=== PATIENT | female | born 2000 | race Caucasian/White ===

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

== ENCOUNTER 2022-01-20 14:54 | Inpatient (IN) | payer OTHER ==
[~2022-01-20] VITALS: Ht 165.1 cm; Wt 60.2 kg
[~2022-01-20 14:54] MED LIST changes: +SULF1TAB24 PO; +insulin pump CONT SUBC
[2022-01-20] MEDS ORDERED: IV NORMAL SALINE 1000ML BAG 1,000 ML IV SCH (17:00)
--- NOTE | 2022-01-20 17:24 | PHYS DOC ---
Past Medical History Past Medical History: Diabetes-Type I Additional Past Medical Histor: drug abuse (JESSICA GALARZA DO) Past Surgical History: No Surgical History (JESSICA GALARZA DO) Smoking Status: Never Smoker Alcohol Use: None Drug Use: Marijuana (JESSICA GALARZA DO) General Adult EDM: Chief Complaint: MEDICATION REFILL HPI: HPI: Patient is a 21 year old female with a history of insulin-dependent diabetes comes in with hyperglycemia medical noncompliance. Patient states that she ran out her of her insulin pump supplies and has been only using a pen. Patient denies any nausea or vomiting. Denies any polyuria. Patient also states that she has not had her menstrual cycle in the last 7 months thinks that she may be . Patient reports pelvic cramping. Denies any vaginal bleeding or dysuria. Patient also states that she is currently taking 30 mg Percocets that are bought in the street and states that they have fentanyl in them. Patient states her preferred method of consuming her Percocets is by snorting them. (JESSICA GALARZA DO) Review of Systems: Review of Systems: Constitutional: Denies fever or chills. Eyes: Denies change in visual acuity. HENT: Denies nasal congestion or sore throat. Respiratory: Denies cough or shortness of breath. Cardiovascular: Denies chest pain or edema. GI: Denies abdominal pain, nausea, vomiting, bloody stools or diarrhea. : Pelvic cramping, missed menstrual cycle, denies dysuria. Musculoskeletal: Denies back pain or joint pain. Integument: Denies rash. Neurologic: Denies headache, focal weakness or sensory changes. Endocrine: Denies polyuria or polydipsia. Lymphatic: Denies swollen glands. Psychiatric: Denies depression or anxiety. Drug dependence (JESSICA GALARZA DO) Heart Score: C/O Chest Pain: No Risk Factors: Risk Factors: DM, Current or recent (<one month) smoker, HTN, HLP, family history of CAD, obesity. Risk Scores: Score 0 - 3: 2.5% MACE over next 6 weeks - Discharge Home Score 4 - 6: 20.3% MACE over next 6 weeks - Admit for Clinical Observation Score 7 - 10: 72.7% MACE over next 6 weeks - Early Invasive Strategies (JESSICA GALARZA DO) Current Medications: Current Medications Medications (Trade) Dose Ordered Sig/Hakan Start Time Stop Time Status Last Admin Dose Admin Sodium Chloride 1,000 ml @ 1,000 mls/hr Q1H 01/20/22 17:00 01/20/22 17:59 (JESSICA GALARZA DO) Allergies: Allergies: Allergies Coded Allergies Type Severity Reaction Last Updated Verified Penicillins Allergy Intermediate Hives 01/20/22 Yes (JESSICA GALARZA DO) Physical Exam: PE: Constitutional: Well developed, well nourished, no acute distress, non-toxic appearance. HENT: Normocephalic, atraumatic, bilateral external ears normal, oropharynx moist, no oral exudates, nose normal. Eyes: PERRLA, EOMI, conjunctiva normal, no discharge. Neck: Normal range of motion, no tenderness, supple, no stridor. Cardiovascular:Heart rate regular rhythm, no murmur Lungs & Thorax: Bilateral breath sounds clear to auscultation Abdomen: Gravid appearance to the abdomen bowel sounds normal, soft, no tenderness, no masses, no pulsatile masses. Skin: Warm, dry, no erythema, no rash. Back: No tenderness, no CVA tenderness. Extremities: No tenderness, no cyanosis, no clubbing, ROM intact, no edema. Neurologic: Alert and oriented X 3, normal motor function, normal sensory function, no focal deficits noted. Psychologic: Affect normal, judgement normal, mood normal. (JESSICA GALARZA DO) Current Patient Data: Labs: Laboratory Tests Test 01/20/22 16:35 01/20/22 16:51 POC Urine HCG, Qualitative Hcg positive (Negative) Glucose (Fingerstick) 339 mg/dL (70-99) H Vital Signs: Vital Signs Date Time Temp Pulse Resp B/P (MAP) Pulse Ox O2 Delivery O2 Flow Rate FiO2 01/20/22 16:15 97.9 92 24 133/87 (102) 99 Room Air 97.9 (JESSICA GALARZA DO) EKG: EKG: Heart rate of 91 is normal sinus rhythm no obvious ischemic changes. (JESSICA GALARZA DO) Radiology/Procedures: Radiology/Procedures: [] (JESSICA GALARZA DO) Course & Med Decision Making: Course & Med Decision Making Pertinent Labs and Imaging studies reviewed. (See chart for details) case endorsed to Dr Camargo, pending, labs, treatment and Dispo (JESSICA GALARZA DO) Course & Med Decision Making I took over this patient's care from the departing physician. The plc technician came to me and said that she is fatimah every 2 minutes and is approximately 30 weeks and 6 days . At this point the patient also tells me that she is having significant vaginal discharge. There is no further point of me keeping her in the emergency department. She will be set up immediately to labor and delivery department. They will perform a complete evaluation including a pelvic exam and swabs. Given the patient's high risk factors she may have risk for sexually transmitted infections and other premature labor issues. From the standpoint of her diabetes she is not currently in DKA. (ELI CAMARGO MD) Dragon Disclaimer: Dragon Disclaimer: This electronic medical record was generated, in whole or in part, using a voice recognition dictation system. (JESSICA GALARZA DO) Departure Departure Impression: Primary Impression: 30 weeks gestation of Additional Impression: Uncontrolled diabetes mellitus Disposition: ADMITTED INPATIENT Condition: STABLE Referrals: EMY SALGADO (PCP) JESSICA GALARZA DO Jan 20, 2022 17:24 ELI CAMARGO MD Jan 20, 2022 19:33
--- NOTE | 2022-01-20 17:42 | EKG ---
[facility] [address] [place] [address] Test Date: 2022-01-20 Test Time: 17:08:12 Pat Name: JESSICA TURNER Department: Room: Gender: F Carton Liner: : 2000 Requested By: JESSICA GALARZA Order Number: [id number] Reading MD: Denis Payne Measurements Intervals [place] Rate: 91 P: 64 PA: 128 QRS: 49 QRSD: 76 T: 40 QT: 330 QTc: 407 Interpretive Statements SINUS RHYTHM Electronically Signed On 01-20-2022 21:14:34 CDT by Denis Payne
[2022-01-20 17:51] LABS: BASO % 0 % (0-3); EOS % 0 % (0-3); HEMATOCRIT 31.5 % (36.0-47.0); LYMPH # 1.3 x10^3/uL (1.0-4.8); LYMPH % 14 % (24-48); MEAN CORPUSCULAR HEMOGLOBIN 29 pg (25-35); MEAN CORPUSCULAR HGB CONC 35 g/dL (31-37); MEAN CORPUSCULAR VOLUME 82 fL (79-100); MONO # 0.6 x10^3/uL (0.0-1.1); MONO % 7 % (0-9); NEUT % 78 % (31-73); PLATELET COUNT 398 x10^3/uL (140-400); RED BLOOD COUNT 3.83 x10^6/uL (3.50-5.40); RED CELL DISTRIBUTION WIDTH 13.1 % (11.5-14.5); WHITE BLOOD COUNT 8.9 x10^3/uL (4.0-11.0)
[2022-01-20 18:04] LABS: CALCIUM 8.9 mg/dL (8.5-10.1); CREATININE 0.6 mg/dL (0.6-1.0); GFR 128.8; POTASSIUM 4.1 mmol/L (3.5-5.1)
[2022-01-20 18:11] LABS: ALBUMIN 2.4 g/dL (3.4-5.0); ALBUMIN/GLOBULIN RATIO 0.5 (1.0-1.7); MAGNESIUM 1.3 mg/dL (1.8-2.4); PHOSPHORUS 2.9 mg/dL (2.6-4.7); TOTAL BILIRUBIN 0.5 mg/dL (0.2-1.0); TOTAL PROTEIN 7.3 g/dL (6.4-8.2)
[2022-01-20 18:42] LABS: BASE EXCESS ABG -4 mmol/L (-3-3); HCO3 ABG 19 mmol/L (21-28); PCO2 ABG 29 mmHg (35-46); PO2 ABG 88 mmHg (85-108); SAT O2 ABG 96 % (92-99)
[2022-01-20 18:43] LABS: FIO2 ABG 21
[2022-01-20 18:57] LABS: BACTERIA,URINE MOD /HPF (0-FEW); WBC,URINE >40 /HPF (0-4)
--- NOTE | 2022-01-20 20:02 | RAD ---
EXAM: US OB Limited CLINICAL HISTORY: Pelvic cramping, no care. COMPARISON: None available. TECHNIQUE: Limited transabdominal ultrasound of the uterus was performed. FINDINGS: NUMBER: Single POSITION: breech. PLACENTA: Location: Posterior wall Placentation: Normal. Cord type: 3 vessel cord. The amount of amniotic fluid appears appropriate. ANATOMY: HEART RATE: 149 bpm COMMENTS: None Current measurements are: BPD - 7.6 cm = 30 weeks and 3 days HC -27.7 cm = 30 weeks and 2 days AC - 29.5 cm = 33 weeks and 3 days FL - 5.5 cm = 29 weeks and 0 days HC/AC: 29 Estimated weight: 3 pounds and 13 Oz. A 4 chamber heart is identified with positive cardiac activity. Bilateral upper and lower extremities are identified. stomach and urinary bladder are identified. Both kidneys are seen. The brain is visualized. MATERNAL ANATOMY CERVIX Length (cm): 1.4 cm UTERUS: No abnormalities seen. Placenta appears normal without appreciable hemorrhage. OVARIES/ADNEXAE: Not visualized. CUL-DE-SAC: No fluid. HISTORICAL DATES Last menstrual period: Unknown. EGA (US): 30 weeks and 6 days TRICIA (US): 03/25/2022. IMPRESSION: 1. Single live intrauterine in breech presentation with estimated gestational age is 30 wee ks and 6 days. 2. Recommend dedicated anatomic screening for further evaluation. Electronically signed by: Yefri Bonilla MD (01/20/2022 8:00 PM) [facility]
[2022-01-20] MEDS ORDERED: IV RINGERS,LACTATED 1000ML 1,000 ML IV PRN (20:30)
[2022-01-20 20:41] LABS: BARBITURATES NEG (NEG); BENZODIAZEPINES NEG (NEG); CANNABINOIDS POS (NEG); COCAINE NEG (NEG); METHADONE NEG (NEG); OPIATES NEG (NEG); PHENCYCLIDINE NEG (NEG)
[2022-01-20 21:00] VITALS: BP 114/60
[2022-01-20] MEDS ORDERED: IV RINGERS,LACTATED 1000ML 1,000 ML IV SCH (21:00)
[2022-01-20 21:14] LABS: AMPHETAMINE/METHAMPHETAMINE NEG (NEG)
[2022-01-20] MEDS ORDERED: MAGNESIUM SULFATE 4GM 100 ML IV ONE ×2 (21:15→21:45)
[2022-01-20] MEDS ORDERED: fentaNYL PF VIAL 100 MCG/2 ML VIAL ONE (21:27)
[2022-01-20] MEDS ORDERED: MORPHINE PF 10 MG/10 ML AMPUL. ONE (21:27)
[2022-01-20] MEDS ORDERED: 0.9 % SODIUM CHLORIDE 10 ML DISP.SYRIN. IV PRN ×3 (21:30→23:15)
[2022-01-20] MEDS ORDERED: MAG HYDROX/ALUMINUM HYD/SIMETH 30 ML ORAL.SUSP PO PRN (21:30)
[2022-01-20] MEDS ORDERED: ACETAMINOPHEN 325 MG TABLET. PO PRN (21:30)
[2022-01-20] MEDS ORDERED: OXYTOCIN 30 UNIT/500 ML PREMIX 500 ML IV PRN ×3 (21:30→23:15)
[2022-01-20] MEDS ORDERED: CLINDAMYCIN 600MG PREMIX 50 ML IV PRN (21:30)
[2022-01-20] MEDS ORDERED: ONDANSETRON PF 4 MG/2 ML VIAL. IVP PRN ×2 (21:30→23:15)
[2022-01-20] MEDS ORDERED: BETAMET ACET&NA PHOS 30 MG/5 ML VIAL. IM SCH (21:30)
[2022-01-20] MEDS ORDERED: TERBUTALINE 1 MG/ML VIAL. SQ PRN (21:30)
[2022-01-20] MEDS ORDERED: LIDOCAINE 1% PF 30 ML VIAL. INJ PRN (21:30)
[2022-01-20] MEDS ORDERED: ZOLPIDEM 5 MG TABLET. PO PRN (21:30)
[2022-01-20] MEDS ORDERED: IBUPROFEN 400 MG TABLET. PO PRN ×2 (21:30→23:15)
[2022-01-20] MEDS ORDERED: CITRIC ACID/SODIUM CITRATE 30 ML SOLUTION. PO PRN (21:30)
[2022-01-20] MEDS ORDERED: CITRIC ACID/SODIUM CITRATE 30 ML SOLUTION. ONE (21:34)
[2022-01-20] MEDS ORDERED: BETAMET ACET&NA PHOS 30 MG/5 ML VIAL. IM STA (21:39)
[2022-01-20] MEDS ORDERED: MAGNESIUM SULFATE 2GM 50 ML IV ONE (21:45)
--- NOTE | 2022-01-20 21:50 | PDOC1 ---
ARIANNE CONDE Tommie [facility] 01/20/222149: BORE MILL OPERATOR FOR PLASTIC H&P Date of Admission: Date of Admission: Jan 20, 2022 at 20:02 History of Present Illness: 21yoG1 presented to ED @ 30.6 weeks by US potts, with complaints of "DKA" or "Opioid withdrawal" endorses snorting Oxycodone/Fentanyl. Type 1 DM, not currently using insulin. No PNC, did not know she was . FSBG 341. Breech presentation per US. RN initially reports patient unaware of UCs, upon arrival to unit, pt reports feeling pelvic/rectal pressure, states symptoms onset recently. Past Medical History: Cardiovascular: No pertinent hx Pulmonary: No pertinent hx GI: No pertinent hx Heme/Onc: No pertinent hx Hepatobiliary: No pertinent hx Psych: No pertinent hx Rheumatologic: No pertinent hx Infectious disease: No pertinent hx ENT: No pertinent hx Renal/: No pertinent hx Endocrine: No pertinent hx Dermatology: No pertinent hx Grav: 1 Past Surgical History: No pertinent history Social History: ALCOHOL: none Drugs: Marijuana, Other (Oxycodone, Fentanyl) Medications: Meds: Current Medications Medications (Trade) Dose Ordered Sig/Hakan Route PRN Reason Start Time Stop Time Status Last Admin Dose Admin Sodium Chloride 1,000 ml @ 1,000 mls/hr Q1H IV 01/20/22 17:00 01/20/22 17:59 DC 01/20/22 17:30 Citric Acid/ Sodium Citrate (Bicitra) 30 ml 1X PRN PRN PO DYSPEPSIA 01/20/22 21:30 01/21/22 21:29 01/20/22 21:36 Allergies: Coded Allergies: Penicillins (Verified Allergy, Intermediate, Hives, 01/20/22) Physical Exam: Vital Signs: Vital Signs Date Time Temp Pulse Resp B/P (MAP) Pulse Ox O2 Delivery O2 Flow Rate FiO2 01/20/22 19:20 86 20 108/51 (70) 98 Room Air 01/20/22 16:15 97.9 97.9 PE: GENERAL: No apparent distress. Alert and oriented. HEENT: Head normocephalic, atraumatic. NECK: Supple LUNGS: Clear to auscultation. HEART: RRR, S1, S2 present, pulses intact ABDOMEN: Soft, positive bowel sounds. EXTREMITIES: No cyanosis or edema. NEUROLOGIC: Normal speech, normal tone PSYCHIATRIC: Normal affect, normal mood. SKIN: No ulceration. Labs: Laboratory Tests Test 01/20/22 16:30 01/20/22 16:35 01/20/22 16:51 01/20/22 17:20 Urine Collection Type Unknown Urine Color (Auto) Light yellow Urine Turbidity Hazy Urine pH (Auto) 6.0 (<5.0-8.0) Urine Specific Britt 1.035 (1.000-1.030) Urine Protein (Auto) Negative mg/dL (Negative) Urine Glucose (Auto)(UA) >=1000 mg/dL (Negative) Urine Ketones (Auto) 10 mg/dL (Negative) Urine Blood (Auto) Small (Negative) Urine Nitrite (Auto) Negative (Negative) Urine Bilirubin (Auto) Negative (Negative) Urine Urobilinogen (Auto) Normal mg/dL (Normal) Urine Leukocyte Esterase (Auto) Moderate (Negative) Urine RBC 3-5 /HPF (0-2) Urine WBC >40 /HPF (0-4) Urine Squamous Epithelial Cells Mod /LPF Urine Bacteria Mod /HPF (0-FEW) Urine Opiates Screen Neg (NEG) Urine Methadone Screen Neg (NEG) Urine Barbiturates Neg (NEG) Urine Phencyclidine Screen Neg (NEG) Urine Amphetamine/Methamphetamine Neg (NEG) Urine Benzodiazepines Screen Neg (NEG) Urine Cocaine Screen Neg (NEG) Urine Cannabinoids Screen Pos (NEG) Urine Ethyl Alcohol Neg (NEG) POC Urine HCG, Qualitative Hcg positive (Negative) Glucose (Fingerstick) 339 mg/dL (70-99) H White Blood Count 8.9 x10^3/uL (4.0-11.0) Red Blood Count 3.83 x10^6/uL (3.50-5.40) Hemoglobin 11.0 g/dL (12.0-15.5) L Hematocrit 31.5 % (36.0-47.0) L Mean Corpuscular Volume 82 fL (79-100) Mean Corpuscular Hemoglobin 29 pg (25-35) Mean Corpuscular Hemoglobin Concent 35 g/dL (31-37) Red Cell Distribution Width 13.1 % (11.5-14.5) Platelet Count 398 x10^3/uL (140-400) Neutrophils (%) (Auto) 78 % (31-73) H Lymphocytes (%) (Auto) 14 % (24-48) L Monocytes (%) (Auto) 7 % (0-9) Eosinophils (%) (Auto) 0 % (0-3) Basophils (%) (Auto) 0 % (0-3) Neutrophils # (Auto) 7.0 x10^3/uL (1.8-7.7) Lymphocytes # (Auto) 1.3 x10^3/uL (1.0-4.8) Monocytes # (Auto) 0.6 x10^3/uL (0.0-1.1) Eosinophils # (Auto) 0.0 x10^3/uL (0.0-0.7) Basophils # (Auto) 0.0 x10^3/uL (0.0-0.2) Maternal Serum HCG Beta Subunit 19296 mIU/mL (0-5) H Sodium Level 127 mmol/L (136-145) L Potassium Level 4.1 mmol/L (3.5-5.1) Chloride Level 93 mmol/L (98-107) L Carbon Dioxide Level 22 mmol/L (21-32) Anion Gap 12 (6-14) Blood Urea Nitrogen 7 mg/dL (7-20) Creatinine 0.6 mg/dL (0.6-1.0) Estimated GFR (Cockcroft-Gault) 128.8 BUN/Creatinine Ratio 12 (6-20) Glucose Level 341 mg/dL (70-99) H Calcium Level 8.9 mg/dL (8.5-10.1) Phosphorus Level 2.9 mg/dL (2.6-4.7) Magnesium Level 1.3 mg/dL (1.8-2.4) L Total Bilirubin 0.5 mg/dL (0.2-1.0) Aspartate Amino Transferase (AST) 7 U/L (15-37) L Alanine Aminotransferase (ALT) 10 U/L (14-59) L Alkaline Phosphatase 172 U/L (46-116) H Total Protein 7.3 g/dL (6.4-8.2) Albumin 2.4 g/dL (3.4-5.0) L Albumin/Globulin Ratio 0.5 (1.0-1.7) L Acetone Level Sm pos (NEG) Test 01/20/22 18:30 01/20/22 18:45 01/20/22 20:13 O2 Saturation 96 % (92-99) Arterial Blood pH 7.44 (7.35-7.45) Arterial Blood pCO2 at Patient Temp 29 mmHg (35-46) L Arterial Blood pO2 at Patient Temp 88 mmHg (85-108) Arterial Blood HCO3 19 mmol/L (21-28) L Arterial Blood Base Excess -4 mmol/L (-3-3) L FiO2 21 SARS-CoV-2 Antigen (Rapid) Negative (NEGATIVE) Glucose (Fingerstick) 343 mg/dL (70-99) H Laboratory Tests 01/20/22 17:20 Laboratory Tests 01/20/22 17:20 Laboratory Tests 01/20/22 17:20 Assessment & Plan: Dr. Kaufman updated to patient status. Plan emergent C/S. Flanging Machine Operator called, Anesthesia notified, GRAIN COMBINER aware - calling to [facility] for transport. BMZ x 1, MgSO4 for neuro-protection, Ancef. Purulent vaginal discharge noted with SVE. Lab reports unable to obtain FFN or GC/CT per nursing. Plan of care discussed with patient, called her grandmother to be present with her, Dr. Kaufman en route for operative delivery. JENNIFER KAUFMAN MD 01/20/22 2315: B[employer] M[employer] OPERATOR FOR PLASTIC H&P History of Present Illness: EDC: 03/25/22 LMP: 06/19/21 21y @ 30.6 by 30wk u/s who presented to the ER with bad cramps and concerns of poor DM control. The pt states that she has been without her DM supplies for the last few days. Along with the bad cramps she decided to present tot he ER. In the ER she was found to have a positive test. She states that she did not know she was , although her EDC by the LMP she gave was consistent with the u/s in the ER. Since she did not know she was she had not had any care. Her FSBS were in the 300's on presentation. She was sent up to L&D were she was found to be ctx'ing. A cervical exam revealed her to be 4 cm dilated with bulging bag. Since the fetus was in breech presentation the team was mobilized for a primary C/S. PMH: CDM PSH: Denies Meds: Insulin All: NKDA OBHx: G1 SH: occ tob and EtOH use FH: noncontributory Physical Exam: PE: FHT: 150's +acels/no decels/mLTV [place]: 2 min SVE: 5/100/BB Assessment & Plan: A/P 21y @ 30.6 by 30wk u/s 1.) PTL - advance cervical dilation, will move toward delivery 2.) Breech presentation 3.) CDM - poor control, will consult hospitalist 4.) No care 5.) Fetus - cat I FHT 6.) H/o substance abuse 7.) GBS unk ARIANNE CONDE CNM Jan 20, 2022 21:50 JENNIFER KAUFMAN MD Jan 20, 2022 23:15
[2022-01-20] MEDS ORDERED: OXYTOCIN 10 UNIT/ML VIAL. ONE (21:54)
[2022-01-20] MEDS ORDERED: ePHEDrine PF IN SALINE 50 MG/10 ML SYRINGE. IV ONE (22:35)
[2022-01-20] MEDS ORDERED: PHENYLEPHRINE in 0.9% NACL PF 1 MG/10 ML SYRINGE. IV ONE (22:38)
[2022-01-20] MEDS ORDERED: IV DEXTROSE 5% 250 ML BAG. IV PRN (23:00)
[2022-01-20] MEDS ORDERED: DEXTROSE 50% 25 GM / 50ML DISP.SYRIN. IV PRN (23:00)
[2022-01-20] MEDS ORDERED: INSULIN LISPRO 300 UNITS/3 ML VIAL. SQ ONE (23:15)
[2022-01-20] MEDS ORDERED: oxyCODONE/APAP 5/325 1 TAB TABLET PO PRN ×2 (23:15)
[2022-01-20] MEDS ORDERED: DOCUSATE SODIUM 100 MG CAPSULE. PO PRN (23:15)
--- NOTE | 2022-01-20 23:22 | PDOC4 ---
OPERATIVE NOTE: PreOp Dx: 1.) IUP @ 30.6 by 30wk u/s, 2.) PTL3.) Breech presentation, 4.) CDM - poor control, 5.) No care, 6.) H/o substance abuse, 7.) GBS unk PostOp Dx: same Procedure: Primary LTCS Surgeon: Ayush Kaufman Anesthesia: Spinal EBL: 800 cc Fluids: 2000 cc UOP: 900 cc Complications: None Findings: viable female infant delivered at 2214. Wt 1600 g. APGARS 7/8. Nml maternal anatomy. Path: Cord blood, cord ABG and placenta JENNIFER KAUFMAN MD Jan 20, 2022 23:22
[2022-01-20] MEDS: INSULIN GLARGINE SYRINGE. SQ SCH (23:42)
[2022-01-21] VITALS (7 sets, daily range): BP systolic 101–113; BP diastolic 45–70
[2022-01-21] MEDS: KETOROLAC 30 MG/ML VIAL. IVP PRN ×3 (00:29→15:29)
--- NOTE | 2022-01-21 01:28 | OP ---
DATE OF SURGERY: 01/20/2022 PREOPERATIVE DIAGNOSES: 1. Intrauterine at 30 weeks and 6 days by 30-week ultrasound. 2. labor. 3. Breech presentation. 4. C diabetes, poorly controlled. 5. No care. 6. History of substance abuse. 7. Group B streptococcus unknown. POSTOPERATIVE DIAGNOSES: 1. Intrauterine at 30 weeks and 6 days by 30-week ultrasound. 2. labor. 3. Breech presentation. 4. C diabetes, poorly controlled. 5. No care. 6. History of substance abuse. 7. Group B streptococcus unknown. PROCEDURE: Primary low transverse . SURGEON: Joshua Lagunas MD ANESTHESIA: Spinal. ESTIMATED BLOOD LOSS: 800 mL. FLUIDS: 2000 mL. URINE OUTPUT: 900 mL. COMPLICATIONS: None. FINDINGS: Viable female delivered at 2214, weight 1600 grams, Apgars 7 and 8. Normal maternal anatomy. PATHOLOGY: Cord blood, cord ABG and placenta. DESCRIPTION OF PROCEDURE: The patient was taken to the operating room where spinal anesthesia was placed without difficulty. The patient was prepped and draped in normal sterile fashion. A Pfannenstiel skin incision was made approximately 2 cm above her pubic symphysis and carried down to underlying layer of fascia. The fascia was then nicked in the midline. The fascial incision was then extended laterally with Wallace scissors. The superior aspect of the fascial incision was then grasped with 2 Lorenzo clamps, elevated, and underlying rectus muscle was dissected off with Wallace scissors. The inferior aspect of fascial incision was then grasped with Lorenzo clamps, elevated, and underlying rectus muscle was dissected off with Wallace scissors. The midline of the rectus muscle was identified and to allow for 2 hemostats to grasp the peritoneum. The peritoneum was then tented up and entered sharply with Metzenbaum scissors. The peritoneal incision was then extended superiorly and inferiorly with good visualization of the bladder with traction and countertraction. At that point, the Justin ring was then placed in the abdomen to better visualize the lower uterine segment. A bladder flap was then created with Metzenbaum scissors. The lower uterine segment was then incised in transverse fashion with the scalpel and the hysterotomy was extended with traction and countertraction. At that point, the infant's bottom was delivered. Once the bottom and legs were delivered, the was already in sacrum anterior position. The infant was then delivered to the level of the scapula. The left arm was swept medially followed by the right arm, which was swept medially and delivered. The infant's head was then flexed with the Anbdtbvcd-Gslbhdl-Heru maneuver and delivered atraumatically. The rest of infant was delivered atraumatically. At that point, the nose and mouth were bulb suctioned. The cord was double clamped and cut and infant was handed over to the waiting canoe builder. Placenta was then removed manually and cleared of all clots and debris. Uterine incision was repaired with #1 chromic in a running locked fashion. A second layer of the same suture was used to imbricate. There was area inferior to the incision just right of midline that was bleeding. A 2-0 chromic was then placed in a fimjyx-kg-[id number] fashion and then ran until hemostasis was achieved. At that point, the gutters were copiously irrigated and cleared of all clots and debris. At that point, the Justin ring was removed. The peritoneum was then reapproximated with 2-0 Vicryl in a running fashion. The muscle was reapproximated with 2-0 Vicryl in a running fashion. There was a portion at the inferior aspect of the right rectus muscle that was bleeding. The Bovie was then able to achieve hemostasis, so a roempj-cs-fgslo stitch of 2-0 Vicryl was then placed to achieve hemostasis. At that point, the fascia was then closed with 0 Vicryl in a running fashion. The skin was then closed with 3-0 Monocryl in a subcuticular manner. Sponges, laps and needles were correct x 3. Two grams of Ancef were given prior to the procedure. The patient was taken to recovery room in stable condition. ROGER/NADIYA DR: Ruben TID: [id number]
[2022-01-21] MEDS: FERROUS SULFATE 325 MG TABLET. PO SCH ×3 (02:59→18:23)
[2022-01-21] MEDS ORDERED: IV NORMAL SALINE 1000ML BAG 1,000 ML IV PRN (03:15)
[2022-01-21] MEDS ORDERED: ceFAZolin SODIUM IV Push 1 GM VIAL. IVP SCH (05:30)
[2022-01-21 07:34] LABS: BASO % 0 % (0-3); EOS % 0 % (0-3); HEMATOCRIT 28.4 % (36.0-47.0); HEMOGLOBIN 10.1 g/dL (12.0-15.5); LYMPH # 0.9 x10^3/uL (1.0-4.8); LYMPH % 9 % (24-48); MEAN CORPUSCULAR HEMOGLOBIN 29 pg (25-35); MEAN CORPUSCULAR HGB CONC 35 g/dL (31-37); MEAN CORPUSCULAR VOLUME 82 fL (79-100); MONO # 0.5 x10^3/uL (0.0-1.1); MONO % 5 % (0-9); NEUT # 8.7 x10^3/uL (1.8-7.7); NEUT % 86 % (31-73); PLATELET COUNT 379 x10^3/uL (140-400); RED BLOOD COUNT 3.44 x10^6/uL (3.50-5.40); RED CELL DISTRIBUTION WIDTH 13.2 % (11.5-14.5)
[2022-01-21 08:05] LABS: CALCIUM 7.9 mg/dL (8.5-10.1); CREATININE 0.5 mg/dL (0.6-1.0); GFR 158.9; POTASSIUM 4.6 mmol/L (3.5-5.1)
[2022-01-21] MEDS: INSULIN LISPRO 300 UNITS/3 ML VIAL. SQ SCH ×4 (08:54→21:21)
[2022-01-21] MEDS: PRENATAL MULTIVITAMIN TABLET. PO SCH (08:54)
[2022-01-21] MEDS ORDERED: MULTIVITAMIN with MINERAL TABLET. PO SCH (09:00)
--- NOTE | 2022-01-21 10:05 | PDOC1 ---
History and Physical Date of Admission Date of Admission DATE: 01/21/22 TIME: 09:55 Identification/Chief Complaint Chief Complaint DKA Source Source: Patient History of Present Illness History of Present Illness Patient is a 21-year-old female with past medical history DM1, presents to the ED with concern for DKA. States she has "not been real" for couple days, co ncerned she might be . She was found to be 30.6 weeks by ultrasound, states she did not know she was and has not received any care. Baby was found to be in breech position, and was taken to the OR for emergent . We have been consulted for medical management. Past Medical History Cardiovascular: No pertinent hx Pulmonary: No pertinent hx GI: No pertinent hx Heme/Onc: No pertinent hx Hepatobiliary: No pertinent hx Psych: No pertinent hx Rheumatologic: No pertinent hx Infectious disease: No pertinent hx ENT: No pertinent hx Renal/: No pertinent hx Endocrine: Diabetes Dermatology: No pertinent hx Grav: 1 Past Surgical History Past Surgical History: Family History Family History Denies family history Social History Smoke: <1 pack per day ALCOHOL: none Drugs: Marijuana, Other Current Problem List Problem List Problems Medical Problems: (1) 30 weeks gestation of Status: Acute (2) Uncontrolled diabetes mellitus Status: Acute Current Medications Current Medications Current Medications Sodium Chloride 1,000 ml @ 1,000 mls/hr Q1H IV Last administered on 01/20/22at 17:30; Start 01/20/22 at 17:00; Stop 01/20/22 at 17:59; Status DC Ringer's Solution 1,000 ml @ 125 mls/hr Q8H PRN IV hydration; Start 01/20/22 at 20:30; Status Cancel Ringer's Solution 1,000 ml @ 125 mls/hr Q8H IV ; Start 01/20/22 at 21:00; Stop 01/21/22 at 03:04; Status DC Magnesium Sulfate 100 ml @ 25 mls/hr 1X ONCE IV Last administered on 01/20/22at 21:40; Start 01/20/22 at 21:15; Stop 01/21/22 at 03:04; Status DC Betamethasone Sodium Phosphate (Celestone Soluspan) 12 mg Q24H IM Last administered on 01/20/22at 21:30; Start 01/20/22 at 21:30; Stop 01/21/22 at 03:04; Status DC Clindamycin Phosphate 50 ml @ 100 mls/hr 1X PREOP PRN IV PRIOR TO PROCEDURE; Start 01/20/22 at 21:30; Stop 01/21/22 at 21:29; Status Cancel Fentanyl Citrate (Fentanyl 2ml Vial) 100 mcg STK-MED ONCE .ROUTE ; Start 01/20/22 at 21:27; Stop 01/20/22 at 21:27; Status DC Morphine Sulfate (Morphine Preservative Free) 10 mg STK-MED ONCE .ROUTE ; Start 01/20/22 at 21:27; Stop 01/20/22 at 21:28; Status DC Cefazolin Sodium/ Dextrose 50 ml @ 100 mls/hr 1X ONCE IV Last administered on 01/20/22at 21:30; Start 01/20/22 at 21:30; Stop 01/21/22 at 03:05; Status DC Sodium Chloride (Normal Saline Flush) 3 ml QSHIFT PRN IV AFTER MEDS AND BLOOD DRAWS; Start 01/20/22 at 21:30; Stop 01/21/22 at 03:05; Status DC Ondansetron HCl (Zofran) 4 mg PRN Q4HRS PRN IVP NAUSEA/VOMITING; Start 01/20/22 at 21:30; Stop 01/21/22 at 03:05; Status DC Citric Acid/ Sodium Citrate (Bicitra) 30 ml 1X PRN PRN PO DYSPEPSIA Last administered on 01/20/22at 21:36; Start 01/20/22 at 21:30; Stop 01/21/22 at 03:05; Status DC Terbutaline Sulfate (Brethine) 0.25 mg 1X PRN PRN SQ SEE COMMENTS; Start 01/20/22 at 21:30; Stop 01/21/22 at 03:05; Status DC Lidocaine HCl (Xylocaine 1% Pf 30ml Vial) 30 ml 1X PRN PRN INJ SEE COMMENTS; Start 01/20/22 at 21:30; Stop 01/21/22 at 03:05; Status DC Cefazolin Sodium (Ancef) 1 gm Q8H IVP ; Start 01/21/22 at 05:30; Stop 01/21/22 at 03:05; Status DC Oxytocin 500 ml @ 0 mls/hr CONT PRN IV SEE I/O RECORD; Start 01/20/22 at 21:30; Stop 01/21/22 at 03:05; Status DC Oxytocin 500 ml @ 0 mls/hr CONT PRN PRN IV Post delivery bleeding; Start 01/20/22 at 21:30; Stop 01/21/22 at 03:05; Status DC Ibuprofen (Motrin) 800 mg PRN Q6HRS PRN PO INFLAMMATION/PAIN PREVENTION; Start 01/20/22 at 21:30; Stop 01/21/22 at 03:05; Status DC Sodium Chloride (Normal Saline Flush) 3 ml QSHIFT PRN IV AFTER MEDS AND BLOOD DRAWS; Start 01/20/22 at 21:30; Stop 01/21/22 at 03:05; Status DC Multivit/ Folic Acid/Iron (Multivitamin ) 1 tab DAILY PO ; Start 01/21/22 at 09:00 Acetaminophen (Tylenol) 650 mg PRN Q6HRS PRN PO MILD PAIN / TEMP > 100.3'F; Start 01/20/22 at 21:30; Stop 01/21/22 at 03:05; Status DC Al Hydroxide/Mg Hydroxide (Mylanta Plus Xs) 30 ml PRN Q4HRS PRN PO HEARTBURN / GAS; Start 01/20/22 at 21:30 Zolpidem Tartrate (Ambien) 5 mg PRN QHS PRN PO INSOMNIA, MAY REPEAT IN 1HR; Start 01/20/22 at 21:30 Citric Acid/ Sodium Citrate (Bicitra) 30 ml STK-MED ONCE .ROUTE ; Start 01/20/22 at 21:34; Stop 01/20/22 at 21:35; Status DC Magnesium Sulfate 100 ml @ 0 mls/hr 1X ONCE IV ; Start 01/20/22 at 21:45; Stop 01/21/22 at 03:05; Status DC Magnesium Sulfate 50 ml @ 0 mls/hr 1X ONCE IV ; Start 01/20/22 at 21:45; Stop 01/21/22 at 03:05; Status DC Betamethasone Sodium Phosphate (Celestone Soluspan) 12 mg 1X STAT IM ; Start 01/20/22 at 21:39; Stop 01/20/22 at 21:40; Status UNV Oxytocin (Pitocin) 10 unit STK-MED ONCE .ROUTE ; Start 01/20/22 at 21:54; Stop 01/20/22 at 21:54; Status DC Ephedrine Sulfate (ePHEDrine PF IN SALINE SYRINGE) 50 mg STK-MED ONCE IV ; Start 01/20/22 at 22:35; Stop 01/20/22 at 22:36; Status DC Phenylephrine HCl (PHENYLEPHRINE in 0.9% NACL PF) 1 mg STK-MED ONCE IV ; Start 01/20/22 at 22:38; Stop 01/20/22 at 22:38; Status DC Insulin Glargine (Lantus Syringe) 15 unit QHS SQ Last administered on 01/20/22at 23:42; Start 01/20/22 at 23:15 Insulin Human Lispro (HumaLOG) 0-9 UNITS TIDACHC SQ Last administered on 01/21/22at 08:54; Start 01/21/22 at 07:30 Dextrose (Dextrose 50%-Water Syringe) 12.5 gm PRN Q15MIN PRN IV SEE COMMENTS; Start 01/20/22 at 23:00 Dextrose (Iv Dextrose 5%) 250 ml PRN Q15MIN PRN IV SEE COMMENTS; Start 01/20/22 at 23:00 Insulin Human Lispro (HumaLOG) 9 units 1X ONCE SQ Last administered on 01/20/22at 23:44; Start 01/20/22 at 23:15; Stop 01/20/22 at 23:16; Status DC Sodium Chloride (Normal Saline Flush) 3 ml QSHIFT PRN IV AFTER MEDS AND BLOOD DRAWS; Start 01/20/22 at 23:15 Oxytocin 500 ml @ 125 mls/hr CONT PRN IV EXCESSIVE POST- BLEEDING; Start 01/20/22 at 23:15; Stop 01/21/22 at 07:14; Status DC Ibuprofen (Motrin) 800 mg PRN Q8HRS PRN PO INFLAMMATION; Start 01/20/22 at 23:15 Ondansetron HCl (Zofran) 4 mg PRN Q6HRS PRN IVP NAUSEA/VOMITING; Start 01/20/22 at 23:15 Docusate Sodium (Colace) 100 mg PRN BID PRN PO HARD STOOLS; Start 01/20/22 at 23:15 Ferrous Sulfate (Feosol) 325 mg BIDWMEALS PO ; Start 01/20/22 at 17:00 Multivitamins (Thera M Plus) 1 tab DAILY PO ; Start 01/21/22 at 09:00; Status UNV Oxycodone/ Acetaminophen (Percocet 5/325) 1 tab PRN Q4HRS PRN PO MILD PAIN 1-3; Start 01/20/22 at 23:15 Oxycodone/ Acetaminophen (Percocet 5/325) 2 tab PRN Q4HRS PRN PO MODERATE PAIN, SEVERE PAIN; Start 01/20/22 at 23:15 Ketorolac Tromethamine (Toradol 30mg Vial) 30 mg PRN Q6HRS PRN IVP INFLAMMATION Last administered on 01/21/22at 05:52; Start 01/21/22 at 00:30; Stop 01/26/22 at 00:29 Sodium Chloride 1,000 ml @ 125 mls/hr CONT PRN PRN IV hydration Last administered on 01/21/22at 05:06; Start 01/21/22 at 03:15 Active Scripts Active Bactrim Ds Tablet (Sulfamethoxazole/Trimethoprim) 1 Each Tablet 1 Tab PO BID 7 Days Flonase Allergy Relief (Fluticasone Propionate) 9.9 Ml Dawson.susp 2 Sprays NS DAILY 30 Days Zyrtec (Cetirizine Hcl) 10 Mg Tablet 1 Tab PO DAILY Reported [insulin pump] CONT SUBC Allergies Allergies: Coded Allergies: Penicillins (Verified Allergy, Intermediate, Hives, 01/21/22) CEFAZOLIN TOLERATED ROS Review of System GENERAL: No history of weight change, weakness or fevers. SKIN: No bruising, hair changes or rashes. EYES: No blurred, double or loss of vision. NOSE AND THROAT: No history of nosebleeds, hoarseness or sore throat. HEART: Denies chest pain, denies palpitations. LUNGS: Denies cough, hemoptysis, wheezing or shortness of breath. GASTROINTESTINAL: Abdominal pain. Denies nausea, vomiting. GENITOURINARY: Denies dysuria, frequency, urgency, hematuria. NEUROLOGIC: Denies history of numbness, tingling, tremor or weakness. PSYCHIATRIC: Denies anxiety, denies depression. ENDOCRINE: No history of heat or cold intolerance, polyuria or polydipsia. EXTREMITIES: Denies muscle weakness, joint pain, pain on walking or stiffness. Physical Exam Physical Exam General: Thin, frail. Alert, Oriented X3, Cooperative, No acute distress HEENT: PERRLA, EOMI Lungs: Clear to auscultation, Normal air movement Heart: RRR, no murmurs Cardiovascular: S1, S2 Abdomen: Normal bowel sounds, Soft, No tenderness Extremities: No clubbing, No cyanosis Skin: No rashes, No significant lesion Neuro: Normal speech, Normal tone, Sensation intact Psych/Mental Status: Mental status NL, Mood NL Vitals Vitals Vital Signs Date Time Temp Pulse Resp B/P (MAP) Pulse Ox O2 Delivery O2 Flow Rate FiO2 01/21/22 06:05 98.2 74 18 104/49 (67) 98 Room Air 98.2 Labs Labs Laboratory Tests Test 01/20/22 16:30 01/20/22 16:35 01/20/22 16:51 01/20/22 17:20 Urine Collection Type Unknown Urine Color (Auto) Light yellow Urine Turbidity Hazy Urine pH (Auto) 6.0 (<5.0-8.0) Urine Specific [place] 1.035 (1.000-1.030) Urine Protein (Auto) Negative mg/dL (Negative) Urine Glucose (Auto)(UA) >=1000 mg/dL (Negative) Urine Ketones (Auto) 10 mg/dL (Negative) Urine Blood (Auto) Small (Negative) Urine Nitrite (Auto) Negative (Negative) Urine Bilirubin (Auto) Negative (Negative) Urine Urobilinogen (Auto) Normal mg/dL (Normal) Urine Leukocyte Esterase (Auto) Moderate (Negative) Urine RBC 3-5 /HPF (0-2) Urine WBC >40 /HPF (0-4) Urine Squamous Epithelial Cells Mod /LPF Urine Bacteria Mod /HPF (0-FEW) Urine Opiates Screen Neg (NEG) Urine Methadone Screen Neg (NEG) Urine Barbiturates Neg (NEG) Urine Phencyclidine Screen Neg (NEG) Urine Amphetamine/Methamphetamine Neg (NEG) Urine Benzodiazepines Screen Neg (NEG) Urine Cocaine Screen Neg (NEG) Urine Cannabinoids Screen Pos (NEG) Urine Ethyl Alcohol Neg (NEG) Bedside Urine HCG, Qualitative Hcg positive (Negative) Glucose (Fingerstick) 339 mg/dL (70-99) White Blood Count 8.9 x10^3/uL (4.0-11.0) Red Blood Count 3.83 x10^6/uL (3.50-5.40) Hemoglobin 11.0 g/dL (12.0-15.5) Hematocrit 31.5 % (36.0-47.0) Mean Corpuscular Volume 82 fL (79-100) Mean Corpuscular Hemoglobin 29 pg (25-35) Mean Corpuscular Hemoglobin Concent 35 g/dL (31-37) Red Cell Distribution Width 13.1 % (11.5-14.5) Platelet Count 398 x10^3/uL (140-400) Neutrophils (%) (Auto) 78 % (31-73) Lymphocytes (%) (Auto) 14 % (24-48) Monocytes (%) (Auto) 7 % (0-9) Eosinophils (%) (Auto) 0 % (0-3) Basophils (%) (Auto) 0 % (0-3) Neutrophils # (Auto) 7.0 x10^3/uL (1.8-7.7) Lymphocytes # (Auto) 1.3 x10^3/uL (1.0-4.8) Monocytes # (Auto) 0.6 x10^3/uL (0.0-1.1) Eosinophils # (Auto) 0.0 x10^3/uL (0.0-0.7) Basophils # (Auto) 0.0 x10^3/uL (0.0-0.2) Maternal Serum HCG Beta Subunit 74911 mIU/mL (0-5) Sodium Level 127 mmol/L (136-145) Potassium Level 4.1 mmol/L (3.5-5.1) Chloride Level 93 mmol/L (98-107) Carbon Dioxide Level 22 mmol/L (21-32) Anion Gap 12 (6-14) Blood Urea Nitrogen 7 mg/dL (7-20) Creatinine 0.6 mg/dL (0.6-1.0) Estimated GFR (Cockcroft-Gault) 128.8 BUN/Creatinine Ratio 12 (6-20) Glucose Level 341 mg/dL (70-99) Calcium Level 8.9 mg/dL (8.5-10.1) Phosphorus Level 2.9 mg/dL (2.6-4.7) Magnesium Level 1.3 mg/dL (1.8-2.4) Total Bilirubin 0.5 mg/dL (0.2-1.0) Aspartate Amino Transf (AST/SGOT) 7 U/L (15-37) Alanine Aminotransferase (ALT/SGPT) 10 U/L (14-59) Alkaline Phosphatase 172 U/L (46-116) Total Protein 7.3 g/dL (6.4-8.2) Albumin 2.4 g/dL (3.4-5.0) Albumin/Globulin Ratio 0.5 (1.0-1.7) Acetone Level Sm pos (NEG) Test 01/20/22 18:30 01/20/22 18:45 01/20/22 20:13 01/20/22 21:03 O2 Saturation 96 % (92-99) Arterial Blood pH 7.44 (7.35-7.45) Arterial Blood pCO2 at Patient Temp 29 mmHg (35-46) Arterial Blood pO2 at Patient Temp 88 mmHg (85-108) Arterial Blood HCO3 19 mmol/L (21-28) Arterial Blood Base Excess -4 mmol/L (-3-3) FiO2 21 SARS-CoV-2 Antigen (Rapid) Negative (NEGATIVE) Glucose (Fingerstick) 343 mg/dL (70-99) Treponema pallidum Antibody Nonreactive (Nonreactive) Hepatitis B Surface Antigen Nonreactive (Nonreactive) HIV (1&2) Antibody Screen Nonreactive (Nonreactive) Test 01/21/22 07:15 01/21/22 08:16 White Blood Count 10.0 x10^3/uL (4.0-11.0) Red Blood Count 3.44 x10^6/uL (3.50-5.40) Hemoglobin 10.1 g/dL (12.0-15.5) Hematocrit 28.4 % (36.0-47.0) Mean Corpuscular Volume 82 fL (79-100) Mean Corpuscular Hemoglobin 29 pg (25-35) Mean Corpuscular Hemoglobin Concent 35 g/dL (31-37) Red Cell Distribution Width 13.2 % (11.5-14.5) Platelet Count 379 x10^3/uL (140-400) Neutrophils (%) (Auto) 86 % (31-73) Lymphocytes (%) (Auto) 9 % (24-48) Monocytes (%) (Auto) 5 % (0-9) Eosinophils (%) (Auto) 0 % (0-3) Basophils (%) (Auto) 0 % (0-3) Neutrophils # (Auto) 8.7 x10^3/uL (1.8-7.7) Lymphocytes # (Auto) 0.9 x10^3/uL (1.0-4.8) Monocytes # (Auto) 0.5 x10^3/uL (0.0-1.1) Eosinophils # (Auto) 0.0 x10^3/uL (0.0-0.7) Basophils # (Auto) 0.0 x10^3/uL (0.0-0.2) Sodium Level 128 mmol/L (136-145) Potassium Level 4.6 mmol/L (3.5-5.1) Chloride Level 100 mmol/L (98-107) Carbon Dioxide Level 19 mmol/L (21-32) Anion Gap 9 (6-14) Blood Urea Nitrogen 8 mg/dL (7-20) Creatinine 0.5 mg/dL (0.6-1.0) Estimated GFR (Cockcroft-Gault) 158.9 Glucose Level 213 mg/dL (70-99) Calcium Level 7.9 mg/dL (8.5-10.1) Magnesium Level 1.8 mg/dL (1.8-2.4) Glucose (Fingerstick) 205 mg/dL (70-99) Laboratory Tests Test 01/20/22 16:30 01/20/22 16:35 01/20/22 16:51 01/20/22 17:20 Urine Collection Type Unknown Urine Color (Auto) Light yellow Urine Turbidity Hazy Urine pH (Auto) 6.0 (<5.0-8.0) Urine Specific [place] 1.035 (1.000-1.030) Urine Protein (Auto) Negative mg/dL (Negative) Urine Glucose (Auto)(UA) >=1000 mg/dL (Negative) Urine Ketones (Auto) 10 mg/dL (Negative) Urine Blood (Auto) Small (Negative) Urine Nitrite (Auto) Negative (Negative) Urine Bilirubin (Auto) Negative (Negative) Urine Urobilinogen (Auto) Normal mg/dL (Normal) Urine Leukocyte Esterase (Auto) Moderate (Negative) Urine RBC 3-5 /HPF (0-2) Urine WBC >40 /HPF (0-4) Urine Squamous Epithelial Cells Mod /LPF Urine Bacteria Mod /HPF (0-FEW) Urine Opiates Screen Neg (NEG) Urine Methadone Screen Neg (NEG) Urine Barbiturates Neg (NEG) Urine Phencyclidine Screen Neg (NEG) Urine Amphetamine/Methamphetamine Neg (NEG) Urine Benzodiazepines Screen Neg (NEG) Urine Cocaine Screen Neg (NEG) Urine Cannabinoids Screen Pos (NEG) Urine Ethyl Alcohol Neg (NEG) Bedside Urine HCG, Qualitative Hcg positive (Negative) Glucose (Fingerstick) 339 mg/dL (70-99) White Blood Count 8.9 x10^3/uL (4.0-11.0) Red Blood Count 3.83 x10^6/uL (3.50-5.40) Hemoglobin 11.0 g/dL (12.0-15.5) Hematocrit 31.5 % (36.0-47.0) Mean Corpuscular Volume 82 fL (79-100) Mean Corpuscular Hemoglobin 29 pg (25-35) Mean Corpuscular Hemoglobin Concent 35 g/dL (31-37) Red Cell Distribution Width 13.1 % (11.5-14.5) Platelet Count 398 x10^3/uL (140-400) Neutrophils (%) (Auto) 78 % (31-73) Lymphocytes (%) (Auto) 14 % (24-48) Monocytes (%) (Auto) 7 % (0-9) Eosinophils (%) (Auto) 0 % (0-3) Basophils (%) (Auto) 0 % (0-3) Neutrophils # (Auto) 7.0 x10^3/uL (1.8-7.7) Lymphocytes # (Auto) 1.3 x10^3/uL (1.0-4.8) Monocytes # (Auto) 0.6 x10^3/uL (0.0-1.1) Eosinophils # (Auto) 0.0 x10^3/uL (0.0-0.7) Basophils # (Auto) 0.0 x10^3/uL (0.0-0.2) Maternal Serum HCG Beta Subunit 13454 mIU/mL (0-5) Sodium Level 127 mmol/L (136-145) Potassium Level 4.1 mmol/L (3.5-5.1) Chloride Level 93 mmol/L (98-107) Carbon Dioxide Level 22 mmol/L (21-32) Anion Gap 12 (6-14) Blood Urea Nitrogen 7 mg/dL (7-20) Creatinine 0.6 mg/dL (0.6-1.0) Estimated GFR (Cockcroft-Gault) 128.8 BUN/Creatinine Ratio 12 (6-20) Glucose Level 341 mg/dL (70-99) Calcium Level 8.9 mg/dL (8.5-10.1) Phosphorus Level 2.9 mg/dL (2.6-4.7) Magnesium Level 1.3 mg/dL (1.8-2.4) Total Bilirubin 0.5 mg/dL (0.2-1.0) Aspartate Amino Transf (AST/SGOT) 7 U/L (15-37) Alanine Aminotransferase (ALT/SGPT) 10 U/L (14-59) Alkaline Phosphatase 172 U/L (46-116) Total Protein 7.3 g/dL (6.4-8.2) Albumin 2.4 g/dL (3.4-5.0) Albumin/Globulin Ratio 0.5 (1.0-1.7) Acetone Level Sm pos (NEG) Test 01/20/22 18:30 01/20/22 18:45 01/20/22 20:13 01/20/22 21:03 O2 Saturation 96 % (92-99) Arterial Blood pH 7.44 (7.35-7.45) Arterial Blood pCO2 at Patient Temp 29 mmHg (35-46) Arterial Blood pO2 at Patient Temp 88 mmHg (85-108) Arterial Blood HCO3 19 mmol/L (21-28) Arterial Blood Base Excess -4 mmol/L (-3-3) FiO2 21 SARS-CoV-2 Antigen (Rapid) Negative (NEGATIVE) Glucose (Fingerstick) 343 mg/dL (70-99) Treponema pallidum Antibody Nonreactive (Nonreactive) Hepatitis B Surface Antigen Nonreactive (Nonreactive) HIV (1&2) Antibody Screen Nonreactive (Nonreactive) Test 01/21/22 07:15 01/21/22 08:16 White Blood Count 10.0 x10^3/uL (4.0-11.0) Red Blood Count 3.44 x10^6/uL (3.50-5.40) Hemoglobin 10.1 g/dL (12.0-15.5) Hematocrit 28.4 % (36.0-47.0) Mean Corpuscular Volume 82 fL (79-100) Mean Corpuscular Hemoglobin 29 pg (25-35) Mean Corpuscular Hemoglobin Concent 35 g/dL (31-37) Red Cell Distribution Width 13.2 % (11.5-14.5) Platelet Count 379 x10^3/uL (140-400) Neutrophils (%) (Auto) 86 % (31-73) Lymphocytes (%) (Auto) 9 % (24-48) Monocytes (%) (Auto) 5 % (0-9) Eosinophils (%) (Auto) 0 % (0-3) Basophils (%) (Auto) 0 % (0-3) Neutrophils # (Auto) 8.7 x10^3/uL (1.8-7.7) Lymphocytes # (Auto) 0.9 x10^3/uL (1.0-4.8) Monocytes # (Auto) 0.5 x10^3/uL (0.0-1.1) Eosinophils # (Auto) 0.0 x10^3/uL (0.0-0.7) Basophils # (Auto) 0.0 x10^3/uL (0.0-0.2) Sodium Level 128 mmol/L (136-145) Potassium Level 4.6 mmol/L (3.5-5.1) Chloride Level 100 mmol/L (98-107) Carbon Dioxide Level 19 mmol/L (21-32) Anion Gap 9 (6-14) Blood Urea Nitrogen 8 mg/dL (7-20) Creatinine 0.5 mg/dL (0.6-1.0) Estimated GFR (Cockcroft-Gault) 158.9 Glucose Level 213 mg/dL (70-99) Calcium Level 7.9 mg/dL (8.5-10.1) Magnesium Level 1.8 mg/dL (1.8-2.4) Glucose (Fingerstick) 205 mg/dL (70-99) Images Images PATIENT: JESSICA TURNER RACCOUNT: [id number] : 2000 LOCATION: ER AGE: 21 SEX: F EXAM STATUS: REG ER ORD. PHYSICIAN: JESSICA GALARZA DO REASON: pelvic cramping, no care PROCEDURE: OB LIMITED EXAM: US OB Limited CLINICAL HISTORY: Pelvic cramping, no care. COMPARISON: None available. TECHNIQUE: Limited transabdominal ultrasound of the uterus was performed. FINDINGS: NUMBER: Single POSITION: breech. PLACENTA: Location: Posterior wall Placentation: Normal. Cord type: 3 vessel cord. The amount of amniotic fluid appears appropriate. ANATOMY: HEART RATE: 149 bpm COMMENTS: None Current measurements are: BPD - 7.6 cm = 30 weeks and 3 days HC -27.7 cm = 30 weeks and 2 days AC - 29.5 cm = 33 weeks and 3 days FL - 5.5 cm = 29 weeks and 0 days HC/AC: 29 Estimated weight: 3 pounds and 13 Oz. A 4 chamber heart is identified with positive cardiac activity. Bilateral upper and lower extremities are identified. stomach and urinary bladder are identified. Both kidneys are seen. The brain is visualized. MATERNAL ANATOMY CERVIX Length (cm): 1.4 cm UTERUS: No abnormalities seen. Placenta appears normal without appreciable hemorrhage. OVARIES/ADNEXAE: Not visualized. CUL-DE-SAC: No fluid. HISTORICAL DATES Last menstrual period: Unknown. EGA (US): 30 weeks and 6 days TRICIA (US): 03/25/2022. IMPRESSION: 1. Single live intrauterine in breech presentation with estimated gestational age is 30 weeks and 6 days. 2. Recommend dedicated anatomic screening for further evaluation. VTE Prophylaxis Ordered VTE Prophylaxis Devices: Yes VTE Pharmacological Prophylaxi: No Assessment/Plan Assessment/Plan DM1 with hyperglycemia Opiate abuse Normocytic anemia s/p delivery Plan: Patient states she has been out of her diabetes supplies for the past couple days, including insulin. Will need to refill vials of NovoLog upon discharge from hospital. Provide pain control Ferrous sulfate FEN - diabetic diet PPX - SCD FULL CODE Dispo - inpatient for above Justifications for Admission Other Justification SHILPA BLACK MD Jan 21, 2022 10:04
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
[2022-01-21] MEDS ORDERED: INSULIN LISPRO 300 UNITS/3 ML VIAL. SQ SCH (18:00)
--- NOTE | 2022-01-21 18:32 | NUR ---
CBG checked prior to dinner per routine order. CBG 481. Pt asymptomatic of acute hyperglycemia, VSS. Dr. Curran paged with results per order/protocol at 175, repeat page at 1809. Call received at 1814, orders entered by Dr. Curran for 1 time dose of Humalog 15 units. Given at 1822 with dinner. No further orders or needs at this time.
[2022-01-21] MEDS: INSULIN GLARGINE SYRINGE. SQ SCH (21:23)
[2022-01-22 00:01] VITALS: BP 112/64
[2022-01-22 04:00] VITALS: BP 114/68
[2022-01-22] MEDS: KETOROLAC 30 MG/ML VIAL. IVP PRN (06:13)
[2022-01-22 06:19] VITALS: BP 122/85
[2022-01-22 07:07] LABS: CALCIUM 9.2 mg/dL (8.5-10.1); CREATININE 0.7 mg/dL (0.6-1.0); GFR 107.8
[2022-01-22] MEDS: INSULIN LISPRO 300 UNITS/3 ML VIAL. SQ SCH ×2 (07:30→11:30)
[2022-01-22 08:10] VITALS: BP 121/84
[2022-01-22] MEDS: PRENATAL MULTIVITAMIN TABLET. PO SCH (08:54)
[2022-01-22] MEDS: FERROUS SULFATE 325 MG TABLET. PO SCH (08:54)
[2022-01-22] MEDS ORDERED: OXYC1TAB15 PO (10:21)
--- NOTE | 2022-01-22 11:01 | PDOC ---
PRINCIPAL INVESTIGATOR PROGRESS NOTE Date of Service: DATE: 01/22/22 TIME: 11:00 Objective: Vital Signs: Vital Signs Date Time Temp Pulse Resp B/P (MAP) Pulse Ox O2 Delivery O2 Flow Rate FiO2 01/21/22 07:45 Room Air 01/21/22 07:45 98.2 73 16 107/57 (74) 98 98.2 Vital Signs Date Time Temp Pulse Resp B/P (MAP) Pulse Ox O2 Delivery O2 Flow Rate FiO2 01/22/22 08:10 97.5 84 18 121/84 (96) 99 Room Air 97.5 Labs: Laboratory Tests Test 01/21/22 12:42 01/21/22 17:29 01/21/22 21:16 01/22/22 04:42 Glucose (Fingerstick) 223 mg/dL (70-99) H 481 mg/dL (70-99) H 319 mg/dL (70-99) H 183 mg/dL (70-99) H Test 01/22/22 06:20 01/22/22 08:36 Sodium Level 132 mmol/L (136-145) L Potassium Level 4.0 mmol/L (3.5-5.1) Chloride Level 99 mmol/L (98-107) Carbon Dioxide Level 24 mmol/L (21-32) Anion Gap 9 (6-14) Blood Urea Nitrogen 12 mg/dL (7-20) Creatinine 0.7 mg/dL (0.6-1.0) Estimated GFR (Cockcroft-Gault) 107.8 Glucose Level 134 mg/dL (70-99) H Calcium Level 9.2 mg/dL (8.5-10.1) Glucose (Fingerstick) 118 mg/dL (70-99) H Laboratory Tests 01/22/22 06:20 Laboratory Tests 01/22/22 06:20 Physical Exam: GENERAL: No apparent distress. Alert and oriented. HEENT: Head normocephalic, atraumatic. NECK: Supple LUNGS: Clear to auscultation. HEART: RRR, S1, S2 present, pulses intact ABDOMEN: Soft, positive bowel sounds. EXTREMITIES: No cyanosis or edema. NEUROLOGIC: Normal speech, normal tone PSYCHIATRIC: Normal affect, normal mood. SKIN: No ulceration. FFNT below umb No C/C/E Inc: C/D/I Assessment & Plan: A/P 21y POD #2 s/p primary LTCS @ 30.6 1.) PO doing well 2.) CDM hospitalists consulted, Will f/u as out pt with Dr. Akua Savage 3.) No care O pos/neg, HIV, RPR, Hep B NR, Rub pending 4.) Anemia Hgb 11.0 -> 10.1 5.) H/o substance abuse 6.) D/C home JENNIFER KAUFMAN MD Jan 22, 2022 11:01
--- NOTE | 2022-01-22 12:30 | NUR ---
Patient's blood sugar at lunch is 190. Patient states she is not eating, sliding scale insulin held per order.
--- NOTE | 2022-01-22 12:33 | PDOC ---
[employer] PROGRESS NOTE Date of Service DOS: DATE: 01/22/22 TIME: 12:31 Chief Complaint Chief Complaint Patient is a 21-year-old female with past medical history DM1, presents to the ED with concern for DKA. States she has "not been real" for couple days, concerned she might be . She was found to be 30.6 weeks by ultrasound, states she did not know she was and has not received any care. Baby was found to be in breech position, and was taken to the OR for emergent . We have been consulted for medical management. History of Present Illness History of Present Illness 01/23/2020 Patient seen and examined Discussed with RN I called Dr. Lagunas Discussed with case management Chart reviewed I left prescription for insulin Also left a appointment slip for a primary care physician appointment (Dr. Savage) Vitals/I&O Vitals/I&O: Vital Signs Date Time Temp Pulse Resp B/P (MAP) Pulse Ox O2 Delivery O2 Flow Rate FiO2 01/22/22 08:10 97.5 84 18 121/84 (96) 99 Room Air 97.5 I & O 01/21/22 01/21/22 01/22/22 15:00 23:00 07:00 Intake Total 500 ml 1310 ml Output Total 550 ml Balance -50 ml 1310 ml Physical Exam General: Alert Heart: Regular rate Lungs: Clear Abdomen: Normal bowel sounds Extremities: No clubbing Skin: No rashes Labs Labs: Laboratory Tests Test 01/21/22 12:42 01/21/22 17:29 01/21/22 21:16 01/22/22 04:42 Glucose (Fingerstick) 223 mg/dL (70-99) 481 mg/dL (70-99) 319 mg/dL (70-99) 183 mg/dL (70-99) Test 01/22/22 06:20 01/22/22 08:36 01/22/22 11:37 Sodium Level 132 mmol/L (136-145) Potassium Level 4.0 mmol/L (3.5-5.1) Chloride Level 99 mmol/L (98-107) Carbon Dioxide Level 24 mmol/L (21-32) Anion Gap 9 (6-14) Blood Urea Nitrogen 12 mg/dL (7-20) Creatinine 0.7 mg/dL (0.6-1.0) Estimated GFR (Cockcroft-Gault) 107.8 Glucose Level 134 mg/dL (70-99) Calcium Level 9.2 mg/dL (8.5-10.1) Glucose (Fingerstick) 118 mg/dL (70-99) 190 mg/dL (70-99) Assessment and Plan Assessmemt and Plan Problems Medical Problems: (1) 30 weeks gestation of Status: Acute (2) Uncontrolled diabetes mellitus Status: Acute Patient is a 21-year-old female with past medical history DM1, presents to the ED with concern for DKA. States she has "not been real" for couple days, concerned she might be . She was found to be 30.6 weeks by ultrasound, states she did not know she was and has not received any care. Baby was found to be in breech position, and was taken to the OR for emergent . We have been consulted for medical Plan Okay to discharge from medical standpoint Follow-up PCP in 1 week I left prescription for insulin Home meds DVT prophylaxis Full code Thank you for allowing us to participate in the care of this nice Comment Review of Relevant I have reviewed the following items nicol (where applicable) has been applied. Medications: Current Medications Medications (Trade) Dose Ordered Sig/Hakan Route PRN Reason Start Time Stop Time Status Last Admin Dose Admin Insulin Human Lispro (HumaLOG) 15 units ONCE SQ 01/21/22 18:00 01/21/22 18:22 Justifications for Admission Other Justification GEN GOTTLIEB III DO Jan 22, 2022 12:33
[2022-01-22 13:26] VITALS: BP 120/76
--- NOTE | 2022-01-22 14:00 | NUR ---
Patient discharged to home accompanied by s/o in stable condition. director of business services was consulted for possible drug treatment services, however, patient refused to wait until they could come see her.
--- NOTE | 2022-01-23 06:04 | DS ---
DATE OF DISCHARGE: 01/22/2022 ADMISSION DIAGNOSES: 1. Intrauterine at 30 weeks and 6 days by 30-week ultrasound. 2. labor. 3. Breech presentation. 4. Diabetes with poor control. 5. No care. 6. History of substance abuse. 7. GBS unknown. DISCHARGE DIAGNOSES: 1. Intrauterine at 30 weeks and 6 days by 30-week ultrasound. 2. labor. 3. Breech presentation. 4. Diabetes with poor control. 5. No care. 6. History of substance abuse. 7. GBS unknown. PROCEDURE: Primary low transverse . BRIEF HOSPITAL COURSE: The patient is a 21-year-old 1, para 0 who presented to the ER at 30 weeks and 6 days by 30-week ultrasound with bad cramps and concerns of poor control of her diabetes. The patient states that she has not been without her diabetes supplies for the last few days. Along with this, she was having bad cramps and decided to presented to the ER. When the patient presented to the ER, she was found to have a positive test. The patient states that she did not know that she was , although her EDC was calculated by her LMP is consistent with the ultrasound that was performed in the ER. The patient was noted to have fingersticks in a 300 on presentation. The patient was sent up to Labor and Delivery where she was found to be fatimah and exam found her to be dilated to 5 cm cervical dilation with a bulging bag. Since the fetus was in breech presentation, the team was mobilized for a primary . The patient underwent said procedure. See operative note for full detail. By postoperative day #2, the patient was meeting all discharge criteria and subsequently discharged home. Of note, the patient had a hemoglobin of 11.0 on admission and after delivery was found to be 10.1. The hospitalist was consulted to manage her diabetes. When she was placed on new insulin regime, she was discharged on insulin per the hospitalist and set up as an outpatient with ____. DISCHARGE INSTRUCTIONS: The patient was told not to lift anything greater than 20 pounds, have pelvic rest for 6 weeks, not to drive on narcotics. CALL IF: The patient was to call if she had fevers, chills, nausea, vomiting, abdominal pain or any additional questions or concerns. FOLLOWUP APPOINTMENT: The patient was to follow up on 01/29/2022 at 11:00 a.m. for an incision check. DISCHARGE MEDICATIONS: The patient was given a prescription for Percocet 5, 30 pills; Motrin 800 mg, 30 pills; Colace 100 mg, 30 pills and insulin per the hospitalist. ANIKET/BYRON/KAITY DR: Ruben TID: [id number]
== END 2022-01-22 14:00 | disposition home or self-care (01) | DRG 786 ==
LOC: ER 14:54 → 3 SO LND 20:02 → OBSVTOIN 21:23 → 3 NORTH 01-21 01:35
PROVIDERS: ADMIT Obstetrics & Gynecology; ATTEND Obstetrics & Gynecology
PROC: 10D00Z1 Extraction of Products of Conception, Low, Open Approach (ICD-10-PCS; principal; 2022-01-20)
DX: O60.14X0 Preterm labor third trimester with preterm delivery third trimester, not applicable or unspecified (principal); E10.10 Type 1 diabetes mellitus with ketoacidosis without coma; O24.02 Pre-existing type 1 diabetes mellitus, in childbirth; F11.23 Opioid dependence with withdrawal; O99.324 Drug use complicating childbirth; O99.02 Anemia complicating childbirth; O32.1XX0 Maternal care for breech presentation, not applicable or unspecified; F17.210 Nicotine dependence, cigarettes, uncomplicated; O99.334 Smoking (tobacco) complicating childbirth; Z37.0 Single live birth; Z3A.30 30 weeks gestation of pregnancy; Z79.4 Long term (current) use of insulin; Z91.19 Patient's noncompliance with other medical treatment and regimen; Z20.822 Contact with and (suspected) exposure to COVID-19; Z88.8 Allergy status to other drugs, medicaments and biological substances; D64.9 Anemia, unspecified
CPT/HCPCS: 36415; 36600; 76815; 80048; 80053; 80307; 81001; 81025; 82010; 82731; 82805; 82962; 83036; 83735; 84100; 84702; 85025; 86592; 86703; 86762; 86850; 86900; 86901; 87340; 87426; 93005; G0379; J0690; J0702; J1815; J1885; J2274; J2370; J2590; J3010; J3475; J7030; 99285-25; G0378

== ENCOUNTER 2022-01-29 10:43 | Inpatient (IN) | payer OTHER ==
[2022-01-29] VITALS (10 sets, daily range): BP systolic 94–146; BP diastolic 49–74
[~2022-01-29] VITALS: Ht 165.1 cm; Wt 63.6 kg
[~2022-01-29 10:43] MED LIST changes: +OXYC1TAB15 PO
[2022-01-29] MEDS ORDERED: IV NORMAL SALINE 1000ML BAG 1,000 ML IV SCH (11:00)
[2022-01-29 11:40] LABS: BASO # 0.1 x10^3/uL (0.0-0.2); BASO % 1 % (0-3); EOS % 0 % (0-3); LYMPH # 1.3 x10^3/uL (1.0-4.8); LYMPH % 7 % (24-48); MEAN CORPUSCULAR HEMOGLOBIN 28 pg (25-35); MEAN CORPUSCULAR HGB CONC 32 g/dL (31-37); MEAN CORPUSCULAR VOLUME 88 fL (79-100); MONO # 0.5 x10^3/uL (0.0-1.1); MONO % 2 % (0-9); NEUT # 17.3 x10^3/uL (1.8-7.7); NEUT % 90 % (31-73); RED BLOOD COUNT 4.66 x10^6/uL (3.50-5.40); RED CELL DISTRIBUTION WIDTH 13.4 % (11.5-14.5); WHITE BLOOD COUNT 19.2 x10^3/uL (4.0-11.0)
[2022-01-29 11:45] LABS: PLATELET COUNT 1234 x10^3/uL (140-400)
[2022-01-29 11:51] LABS: BARBITURATES NEG (NEG); BENZODIAZEPINES NEG (NEG); CANNABINOIDS NEG (NEG); COCAINE NEG (NEG); METHADONE NEG (NEG); OPIATES NEG (NEG); PHENCYCLIDINE NEG (NEG)
[2022-01-29 11:53] LABS: AMPHETAMINE/METHAMPHETAMINE NEG (NEG)
[2022-01-29 11:56] LABS: ALBUMIN 3.2 g/dL (3.4-5.0); ALBUMIN/GLOBULIN RATIO 0.5 (1.0-1.7); CALCIUM 10.1 mg/dL (8.5-10.1); CREATININE 1.2 mg/dL (0.6-1.0); GFR 57.9; MAGNESIUM 2.3 mg/dL (1.8-2.4); POTASSIUM 4.4 mmol/L (3.5-5.1); TOTAL BILIRUBIN 0.4 mg/dL (0.2-1.0); TOTAL PROTEIN 9.8 g/dL (6.4-8.2)
[2022-01-29 11:59] LABS: BACTERIA,URINE 0 /HPF (0-FEW); RBC,URINE 0 /HPF (0-2); WBC,URINE 0 /HPF (0-4)
[2022-01-29 12:00] LABS: BASE EXCESS COOX -19 mmol/L (-3-3); HCO3 COOX 6 mmol/L (21-28); METHEMOGLOBIN 0.3 % (0.0-1.9); OXYHEMOGLOBIN 97.1 %; PO2 COOX 129 mmHg (85-108); SAT O2 COOX 98 % (92-99)
[2022-01-29] MEDS ORDERED: IV NORMAL SALINE 1000ML BAG 1,000 ML IV ONE (12:00)
[2022-01-29 12:01] LABS: PCO2 COOX 16 mmHg (35-46)
[2022-01-29] MEDS ORDERED: CONTRAST GIVEN. MC PRN (12:15)
[2022-01-29] MEDS ORDERED: IOHEXOL 350 MG/ML 100 ML VIAL. IV ONE (12:15)
[2022-01-29] MEDS ORDERED: INSULIN REGULAR VIAL 100 UNIT in IV NORMAL SALINE 100ML 100 ML IV ONE (12:15)
[2022-01-29 12:30] LABS: % BANDS 4 % (0-9); % BASOS 1 % (0-3); % LYMPHS 12 % (24-48); % MONOS 1 % (0-10); % MYELOS 3 % (0-0); % SEGS 79 % (35-66); PLT ESTIMATE INCREASED (ADEQUATE)
[2022-01-29] MEDS ORDERED: AZTREONAM IV Push 2 GM VIAL. IVP ONE (12:30)
--- NOTE | 2022-01-29 12:31 | RAD ---
CTA CHEST History: Dyspnea. Rule out PE. Comparison: Chest x-ray 06/19/2020 Technique: CTA of the pulmonary arteries with intravenous contrast. 3-D postprocessing was performed. Findings: Pulmonary arteries: No pulmonary embolism. Aorta and great vessels: No aneurysm or dissection of the aortic arch or thoracic aorta. Thyroid: No significant abnormalities. Mediastinum and fariha: No mediastinal masses or adenopathy is seen. Esophagus: The visualized esophagus is normal. Heart: The heart is normal in size. There is no pericardial effusion. Airways, Lungs, Pleura: Airways are clear. No airspace consolidation. No pleural effusion or pneumoth orax. Upper abdomen: Ill-defined hypoattenuation medial right kidney, partially visualized. Osseous structures and soft tissues: Within normal limits for age. Impression: 1. No pulmonary embolism. No airspace consolidation. 2. Ill-defined hypoattenuation medial right kidney, partially visualized. Findings may represent shweta lonephritis in the appropriate clinical setting. If pyelonephritis does not correspond to clinical fi ndings, recommend dedicated MRI or CT the kidneys for further evaluation. ------ Exposure: One or more of the following individualized dose reduction techniques were utilized for thi s examination: 1. Automated exposure control 2. Adjustment of the mA and/or kV according to patient size 3. Use of iterative reconstruction technique. Electronically signed by: Vinayak Roger MD (01/29/2022 12:29 PM) [id number]
--- NOTE | 2022-01-29 12:35 | PHYS DOC ---
Past Medical History Past Medical History: Diabetes-Type I Additional Past Medical Histor: drug abuse Past Surgical History: Smoking Status: Former Smoker Alcohol Use: Occasionally Drug Use: Marijuana General Adult EDM: Chief Complaint: HYPERGLYCEMIA HPI: HPI: Patient is a 21 year old female who is insulin-dependent diabetic presents to the ER with hyper glycemia. Patient recently discharged on the hospital after delivering a baby. Patient at the time did not know that she was . Patient has a long standing history of opioid dependence. Patient states that she was discharged approximately 1 week ago but did not fill her prescriptions for insulin. Patient states that she has been feeling ill nauseous epigastric cramping. No fevers or chills. No shortness of breath. Review of Systems: Review of Systems: Constitutional: Denies fever or chills. Generalized weakness, ill this. Eyes: Denies change in visual acuity. HENT: Denies nasal congestion or sore throat. Respiratory: Denies cough or shortness of breath. Cardiovascular: Denies chest pain or edema. GI: Epigastric cramping nausea vomiting poor p.o. tolerance : Denies dysuria. Musculoskeletal: Denies back pain or joint pain. Integument: Denies rash. Neurologic: Denies headache, focal weakness or sensory changes. Endocrine: Denies polyuria or polydipsia. Lymphatic: Denies swollen glands. Psychiatric: Denies depression or anxiety. Heart Score: C/O Chest Pain: No Risk Factors: Risk Factors: DM, Current or recent (<one month) smoker, HTN, HLP, family history of CAD, obesity. Risk Scores: Score 0 - 3: 2.5% MACE over next 6 weeks - Discharge Home Score 4 - 6: 20.3% MACE over next 6 weeks - Admit for Clinical Observation Score 7 - 10: 72.7% MACE over next 6 weeks - Early Invasive Strategies Current Medications: Current Medications Medications (Trade) Dose Ordered Sig/Hakan Start Time Stop Time Status Last Admin Dose Admin Info (CONTRAST GIVEN -- Rx MONITORING) 1 each PRN DAILY PRN 01/29/22 12:15 01/31/22 12:14 Insulin Human Regular 100 unit/ Sodium Chloride 101 ml @ 0 mls/hr 1X ONCE 01/29/22 12:15 01/29/22 12:16 DC 01/29/22 12: 6.3 MLS/HR Iohexol (Omnipaque 350 Mg/ml) 80 ml 1X ONCE 01/29/22 12:15 01/29/22 12:16 DC 01/29/22 12:12 80 ML Sodium Chloride 1,000 ml @ 1,000 mls/hr 1X ONCE 01/29/22 12:00 01/29/22 12:59 01/29/22 12:12 1,000 MLS/HR Allergies: Allergies: Allergies Coded Allergies Type Severity Reaction Last Updated Verified Penicillins Allergy Intermediate Hives 01/21/22 Yes Physical Exam: PE: Constitutional: Ill-appearing, anxious, HENT: Normocephalic, atraumatic, bilateral external ears normal, dry mucous, no oral exudates, nose normal. [] Eyes: PERRLA, EOMI, conjunctiva normal, no discharge. [] Neck: Normal range of motion, no tenderness, supple, no stridor. [] Cardiovascular: Tachycardic Lungs & Thorax: Tachypneic shallow respirations breath sounds are clear to auscultation bilaterally Abdomen: Bowel sounds normal, soft, no tenderness, no masses, no pulsatile masses. [ Skin: Warm, dry, no erythema, no rash. Back: No tenderness, no CVA tenderness. Extremities: No tenderness, no cyanosis, no clubbing, ROM intact, no edema. Neurologic: Alert and oriented X 3, normal motor function, normal sensory function, no focal deficits noted. Psychologic: Anxious Current Patient Data: Labs: Laboratory Tests Test 01/29/22 10:51 01/29/22 11:16 01/29/22 11:20 01/29/22 12:00 Glucose (Fingerstick) 547 mg/dL (70-99) *H Acetone Level Sm pos (NEG) White Blood Count 19.2 x10^3/uL (4.0-11.0) H Red Blood Count 4.66 x10^6/uL (3.50-5.40) Hemoglobin 13.0 g/dL (12.0-15.5) Hematocrit 41.0 % (36.0-47.0) Mean Corpuscular Volume 88 fL (79-100) Mean Corpuscular Hemoglobin 28 pg (25-35) Mean Corpuscular Hemoglobin Concent 32 g/dL (31-37) Red Cell Distribution Width 13.4 % (11.5-14.5) Platelet Count 1234 x10^3/uL (140-400) *H Neutrophils (%) (Auto) 90 % (31-73) H Lymphocytes (%) (Auto) 7 % (24-48) L Monocytes (%) (Auto) 2 % (0-9) Eosinophils (%) (Auto) 0 % (0-3) Basophils (%) (Auto) 1 % (0-3) Neutrophils # (Auto) 17.3 x10^3/uL (1.8-7.7) H Lymphocytes # (Auto) 1.3 x10^3/uL (1.0-4.8) Monocytes # (Auto) 0.5 x10^3/uL (0.0-1.1) Eosinophils # (Auto) 0.0 x10^3/uL (0.0-0.7) Basophils # (Auto) 0.1 x10^3/uL (0.0-0.2) Platelet Estimate Pending Urine Collection Type Unknown Urine Color (Auto) Colorless Urine Turbidity Clear Urine pH (Auto) 5.0 (<5.0-8.0) Urine Specific [place] 1.018 (1.000-1.030) Urine Protein (Auto) 30 mg/dL (Negative) Urine Glucose (Auto)(UA) >=1000 mg/dL (Negative) Urine Ketones (Auto) >150 mg/dL (Negative) Urine Blood (Auto) Small (Negative) Urine Nitrite (Auto) Negative (Negative) Urine Bilirubin (Auto) Negative (Negative) Urine Urobilinogen (Auto) Normal mg/dL (Normal) Urine Leukocyte Esterase (Auto) Negative (Negative) Urine RBC 0 /HPF (0-2) Urine WBC 0 /HPF (0-4) Urine Squamous Epithelial Cells Few /LPF Urine Bacteria 0 /HPF (0-FEW) Sodium Level 133 mmol/L (136-145) L Potassium Level 4.4 mmol/L (3.5-5.1) Chloride Level 94 mmol/L (98-107) L Carbon Dioxide Level 8 mmol/L (21-32) *L Anion Gap 31 (6-14) H Blood Urea Nitrogen 21 mg/dL (7-20) H Creatinine 1.2 mg/dL (0.6-1.0) H Estimated GFR (Cockcroft-Gault) 57.9 BUN/Creatinine Ratio 18 (6-20) Glucose Level 534 mg/dL (70-99) *H Calcium Level 10.1 mg/dL (8.5-10.1) Phosphorus Level 4.0 mg/dL (2.6-4.7) Magnesium Level 2.3 mg/dL (1.8-2.4) Total Bilirubin 0.4 mg/dL (0.2-1.0) Aspartate Amino Transferase (AST) 13 U/L (15-37) L Alanine Aminotransferase (ALT) 17 U/L (14-59) Alkaline Phosphatase 287 U/L (46-116) H Total Protein 9.8 g/dL (6.4-8.2) H Albumin 3.2 g/dL (3.4-5.0) L Albumin/Globulin Ratio 0.5 (1.0-1.7) L Urine Opiates Screen Neg (NEG) Urine Methadone Screen Neg (NEG) Urine Barbiturates Neg (NEG) Urine Phencyclidine Screen Neg (NEG) Urine Amphetamine/Methamphetamine Neg (NEG) Urine Benzodiazepines Screen Neg (NEG) Urine Cocaine Screen Neg (NEG) Urine Cannabinoids Screen Neg (NEG) Urine Ethyl Alcohol Neg (NEG) O2 Saturation 98 % (92-99) Arterial Blood pH 7.22 (7.35-7.45) L Arterial Blood pCO2 at Patient Temp 16 mmHg (35-46) *L Arterial Blood pO2 at Patient Temp 129 mmHg (85-108) H Arterial Blood HCO3 6 mmol/L (21-28) L Arterial Blood Base Excess -19 mmol/L (-3-3) L Oxyhemoglobin 97.1 % Methemoglobin 0.3 % (0.0-1.9) Carbon Monoxide, Quantitative 0.3 % (0.0-1.9) FiO2 21%/ra Test 01/29/22 12:19 Glucose (Fingerstick) 377 mg/dL (70-99) H Laboratory Tests 01/29/22 11:20 Laboratory Tests 01/29/22 11:20 Vital Signs: Vital Signs Date Time Temp Pulse Resp B/P (MAP) Pulse Ox O2 Delivery O2 Flow Rate FiO2 01/29/22 10:50 93.7 127 30 129/69 (89) 100 Room Air 93.7 EKG: EKG: [] Radiology/Procedures: Radiology/Procedures: [] Course & Med Decision Making: Course & Med Decision Making Pertinent Labs and Imaging studies reviewed. (See chart for details) [] Discussed with heme heme-onc Dr. Andrews Discussed with hospitalist and placed under admission Patient will be placed under broad-spectrum antibiotics with cultures pending due to the fact that she has elevated white count likely secondary to stress. Patient does not appear toxic or show signs of a infectious source. Patient started on insulin drip. Critical care time 1 hour Eladio Disclaimer: Eladio Disclaimer: This electronic medical record was generated, in whole or in part, using a voice recognition dictation system. Departure Departure Impression: Primary Impression: Thrombocytosis Additional Impression: DKA (diabetic ketoacidosis) Disposition: ADMITTED INPATIENT Condition: CRITICAL JESSICA GALARZA DO Jan 29, 2022 12:35
[2022-01-29] MEDS ORDERED: VANCOMYCIN 1.5 GM in IV NORMAL SALINE 500ML BAG 500 ML IV ONE (13:00)
[2022-01-29 13:11] LABS: PROTHROMBIN TIME PATIENT 14.7 SEC (11.7-14.0)
--- NOTE | 2022-01-29 14:37 | PDOC1 ---
History and Physical Date of Service: DOS: DATE: 01/29/22 TIME: 14:32 Chief Complaint: Chief Complain: Generalized weakness History of Present Illness: HPI: 21-year-old female who has a history of type 1 diabetes mellitus and insulin- dependent who comes in with weakness due to hyperglycemia. Patient is noncompliant with her insulin regimen and she did receive 24 units of insulin before she went to the emergency department. Her mother did help her with that. Patient was also recently discharged from the hospital after delivering a premature baby at about 30 weeks. Patient did not realize she was . Baby is in the NICU at [facility]. Patient states that she was discharged approximately 1 week ago but did not fill her prescriptions for insulin. Patient states that she has been feeling ill nauseous epigastric cramping. No fevers or chills. No shortness of breath. Past Medical/Surgical History: PMH/PSH: Past Medical History: Diabetes-Type I, history of polysubstance abuse Past Surgical History: Allergies: Allergies: Coded Allergies: Penicillins (Verified Allergy, Intermediate, Hives, 01/21/22) CEFAZOLIN TOLERATED Family History: Family History: Reviewed with no relative findings in the chart except for diabetes Social History: Social History: Smoking Status: Former Smoker Alcohol Use: Occasionally Drug Use: Marijuana Current Medications: Current Medications Current Medications Sodium Chloride 1,000 ml @ 1,000 mls/hr Q1H IV Last administered on 01/29/22at 11:30; Start 01/29/22 at 11:00; Stop 01/29/22 at 11:59; Status DC Sodium Chloride 1,000 ml @ 1,000 mls/hr 1X ONCE IV Last administered on 01/29/22at 12:12; Start 01/29/22 at 12:00; Stop 01/29/22 at 12:59; Status DC Iohexol (Omnipaque 350 Mg/ml) 80 ml 1X ONCE IV Last administered on 01/29/22at 12:12; Start 01/29/22 at 12:15; Stop 01/29/22 at 12:16; Status DC Insulin Human Regular 100 unit/ Sodium Chloride 101 ml @ 0 mls/hr 1X ONCE IV Last administered on 01/29/22at 12:22; Start 01/29/22 at 12:15; Stop 01/29/22 at 12:16; Status DC Info (CONTRAST GIVEN -- Rx MONITORING) 1 each PRN DAILY PRN MC SEE COMMENTS; Start 01/29/22 at 12:15; Stop 01/31/22 at 12:14 Vancomycin HCl 1.5 gm/Sodium Chloride 500 ml @ 250 mls/hr 1X ONCE IV Last administered on 01/29/22at 13:06; Start 01/29/22 at 13:00; Stop 01/29/22 at 14:59 Aztreonam (Azactam) 2 gm 1X ONCE IVP Last administered on 01/29/22at 12:58; Start 01/29/22 at 12:30; Stop 01/29/22 at 12:35; Status DC Active Scripts Active Percocet 5-325 Mg Tablet (Oxycodone/Acetaminophen) 1 Each Tablet 1 Tab PO PRN Q6HRS PRN Bactrim Ds Tablet (Sulfamethoxazole/Trimethoprim) 1 Each Tablet 1 Tab PO BID 7 Days Flonase Allergy Relief (Fluticasone Propionate) 9.9 Ml [place].susp 2 Sprays NS DA VIN 30 Days Zyrtec (Cetirizine Hcl) 10 Mg Tablet 1 Tab PO DAILY Reported [insulin pump] CONT SUBC ROS: Review of Systems Review of System REVIEW OF SYSTEMS: GENERAL: Positive for generalized weakness SKIN: No bruising, hair changes or rashes. EYES: No blurred, double or loss of vision. NOSE AND THROAT: No history of nosebleeds, hoarseness or sore throat. HEART: No history of palpitations, chest pain or shortness of breath on exertion. LUNGS: Denies cough, hemoptysis, wheezing or shortness of breath. GASTROINTESTINAL: Denies changes in appetite, nausea, vomiting, diarrhea or constipation. GENITOURINARY: No history of frequency, urgency, hesitancy or nocturia. NEUROLOGIC: Denies history of numbness, tingling, or tremor. PSYCHIATRIC: No history of panic, anxiety or depression. ENDOCRINE: No history of heat or cold intolerance, polyuria or polydipsia. EXTREMITIES: Denies joint pain, pain on walking or stiffness. Physical Exam: Vital Signs: Vital Signs Date Time Temp Pulse Resp B/P (MAP) Pulse Ox O2 Delivery O2 Flow Rate FiO2 01/29/22 10:50 93.7 127 30 129/69 (89) 100 Room Air 93.7 Physcial Exam: General: Well developed, well nourished, no acute distress, well appearing HEENT: Pupils equally round and reactive to light, EOMI, no discharge, normal conjunctiva Neck: Supple, no nuchal rigidity, no JVD, trachea midline, no tenderness Cardiac: RRR, no murmurs, no gallops, no rubs Chest/Lungs: CTAB, no wheeze, no rhonchi, no crackles Abdomen: soft, non-distended, no guarding, no peritoneal signs, non-tender Back: No tenderness Extremities: no edema, pulses intact, non-tender,capillary refill <3 sec bilate ral upper and lower extremities, Neuro: Alert and oriented x 4, no focal deficits, normal speech Labs: Labs: Laboratory Tests Test 01/29/22 10:51 01/29/22 11:16 01/29/22 11:20 01/29/22 12:00 Glucose (Fingerstick) 547 mg/dL (70-99) Acetone Level Sm pos (NEG) White Blood Count 19.2 x10^3/uL (4.0-11.0) Red Blood Count 4.66 x10^6/uL (3.50-5.40) Hemoglobin 13.0 g/dL (12.0-15.5) Hematocrit 41.0 % (36.0-47.0) Mean Corpuscular Volume 88 fL (79-100) Mean Corpuscular Hemoglobin 28 pg (25-35) Mean Corpuscular Hemoglobin Concent 32 g/dL (31-37) Red Cell Distribution Width 13.4 % (11.5-14.5) Platelet Count 1234 x10^3/uL (140-400) Neutrophils (%) (Auto) 90 % (31-73) Lymphocytes (%) (Auto) 7 % (24-48) Monocytes (%) (Auto) 2 % (0-9) Eosinophils (%) (Auto) 0 % (0-3) Basophils (%) (Auto) 1 % (0-3) Neutrophils # (Auto) 17.3 x10^3/uL (1.8-7.7) Lymphocytes # (Auto) 1.3 x10^3/uL (1.0-4.8) Monocytes # (Auto) 0.5 x10^3/uL (0.0-1.1) Eosinophils # (Auto) 0.0 x10^3/uL (0.0-0.7) Basophils # (Auto) 0.1 x10^3/uL (0.0-0.2) Segmented Neutrophils % 79 % (35-66) Band Neutrophils % 4 % (0-9) Lymphocytes % 12 % (24-48) Monocytes % 1 % (0-10) Basophils % 1 % (0-3) Myelocytes % 3 % (0-0) Platelet Estimate Increased (ADEQUATE) Urine Collection Type Unknown Urine Color (Auto) Colorless Urine Turbidity Clear Urine pH (Auto) 5.0 (<5.0-8.0) Urine Specific [place] 1.018 (1.000-1.030) Urine Protein (Auto) 30 mg/dL (Negative) Urine Glucose (Auto)(UA) >=1000 mg/dL (Negative) Urine Ketones (Auto) >150 mg/dL (Negative) Urine Blood (Auto) Small (Negative) Urine Nitrite (Auto) Negative (Negative) Urine Bilirubin (Auto) Negative (Negative) Urine Urobilinogen (Auto) Normal mg/dL (Normal) Urine Leukocyte Esterase (Auto) Negative (Negative) Urine RBC 0 /HPF (0-2) Urine WBC 0 /HPF (0-4) Urine Squamous Epithelial Cells Few /LPF Urine Bacteria 0 /HPF (0-FEW) Sodium Level 133 mmol/L (136-145) Potassium Level 4.4 mmol/L (3.5-5.1) Chloride Level 94 mmol/L (98-107) Carbon Dioxide Level 8 mmol/L (21-32) Anion Gap 31 (6-14) Blood Urea Nitrogen 21 mg/dL (7-20) Creatinine 1.2 mg/dL (0.6-1.0) Estimated GFR (Cockcroft-Gault) 57.9 BUN/Creatinine Ratio 18 (6-20) Glucose Level 534 mg/dL (70-99) Calcium Level 10.1 mg/dL (8.5-10.1) Phosphorus Level 4.0 mg/dL (2.6-4.7) Magnesium Level 2.3 mg/dL (1.8-2.4) Total Bilirubin 0.4 mg/dL (0.2-1.0) Aspartate Amino Transf (AST/SGOT) 13 U/L (15-37) Alanine Aminotransferase (ALT/SGPT) 17 U/L (14-59) Alkaline Phosphatase 287 U/L (46-116) Total Protein 9.8 g/dL (6.4-8.2) Albumin 3.2 g/dL (3.4-5.0) Albumin/Globulin Ratio 0.5 (1.0-1.7) Urine Opiates Screen Neg (NEG) Urine Methadone Screen Neg (NEG) Urine Barbiturates Neg (NEG) Urine Phencyclidine Screen Neg (NEG) Urine Amphetamine/Methamphetamine Neg (NEG) Urine Benzodiazepines Screen Neg (NEG) Urine Cocaine Screen Neg (NEG) Urine Cannabinoids Screen Neg (NEG) Urine Ethyl Alcohol Neg (NEG) O2 Saturation 98 % (92-99) Arterial Blood pH 7.22 (7.35-7.45) Arterial Blood pCO2 at Patient Temp 16 mmHg (35-46) Arterial Blood pO2 at Patient Temp 129 mmHg (85-108) Arterial Blood HCO3 6 mmol/L (21-28) Arterial Blood Base Excess -19 mmol/L (-3-3) Oxyhemoglobin 97.1 % Methemoglobin 0.3 % (0.0-1.9) Carbon Monoxide, Quantitative 0.3 % (0.0-1.9) FiO2 21%/ra Test 01/29/22 12:19 01/29/22 12:40 01/29/22 13:09 01/29/22 13:20 Glucose (Fingerstick) 377 mg/dL (70-99) 257 mg/dL (70-99) Prothrombin Time 14.7 SEC (11.7-14.0) Prothromb Time International Ratio 1.2 (0.8-1.1) SARS-CoV-2 Antigen (Rapid) Negative (NEGATIVE) Test 01/29/22 14:18 Glucose (Fingerstick) 201 mg/dL (70-99) Laboratory Tests Test 01/29/22 10:51 01/29/22 11:16 01/29/22 11:20 01/29/22 12:00 Glucose (Fingerstick) 547 mg/dL (70-99) Acetone Level Sm pos (NEG) White Blood Count 19.2 x10^3/uL (4.0-11.0) Red Blood Count 4.66 x10^6/uL (3.50-5.40) Hemoglobin 13.0 g/dL (12.0-15.5) Hematocrit 41.0 % (36.0-47.0) Mean Corpuscular Volume 88 fL (79-100) Mean Corpuscular Hemoglobin 28 pg (25-35) Mean Corpuscular Hemoglobin Concent 32 g/dL (31-37) Red Cell Distribution Width 13.4 % (11.5-14.5) Platelet Count 1234 x10^3/uL (140-400) Neutrophils (%) (Auto) 90 % (31-73) Lymphocytes (%) (Auto) 7 % (24-48) Monocytes (%) (Auto) 2 % (0-9) Eosinophils (%) (Auto) 0 % (0-3) Basophils (%) (Auto) 1 % (0-3) Neutrophils # (Auto) 17.3 x10^3/uL (1.8-7.7) Lymphocytes # (Auto) 1.3 x10^3/uL (1.0-4.8) Monocytes # (Auto) 0.5 x10^3/uL (0.0-1.1) Eosinophils # (Auto) 0.0 x10^3/uL (0.0-0.7) Basophils # (Auto) 0.1 x10^3/uL (0.0-0.2) Segmented Neutrophils % 79 % (35-66) Band Neutrophils % 4 % (0-9) Lymphocytes % 12 % (24-48) Monocytes % 1 % (0-10) Basophils % 1 % (0-3) Myelocytes % 3 % (0-0) Platelet Estimate Increased (ADEQUATE) Urine Collection Type Unknown Urine Color (Auto) Colorless Urine Turbidity Clear Urine pH (Auto) 5.0 (<5.0-8.0) Urine Specific [place] 1.018 (1.000-1.030) Urine Protein (Auto) 30 mg/dL (Negative) Urine Glucose (Auto)(UA) >=1000 mg/dL (Negative) Urine Ketones (Auto) >150 mg/dL (Negative) Urine Blood (Auto) Small (Negative) Urine Nitrite (Auto) Negative (Negative) Urine Bilirubin (Auto) Negative (Negative) Urine Urobilinogen (Auto) Normal mg/dL (Normal) Urine Leukocyte Esterase (Auto) Negative (Negative) Urine RBC 0 /HPF (0-2) Urine WBC 0 /HPF (0-4) Urine Squamous Epithelial Cells Few /LPF Urine Bacteria 0 /HPF (0-FEW) Sodium Level 133 mmol/L (136-145) Potassium Level 4.4 mmol/L (3.5-5.1) Chloride Level 94 mmol/L (98-107) Carbon Dioxide Level 8 mmol/L (21-32) Anion Gap 31 (6-14) Blood Urea Nitrogen 21 mg/dL (7-20) Creatinine 1.2 mg/dL (0.6-1.0) Estimated GFR (Cockcroft-Gault) 57.9 BUN/Creatinine Ratio 18 (6-20) Glucose Level 534 mg/dL (70-99) Calcium Level 10.1 mg/dL (8.5-10.1) Phosphorus Level 4.0 mg/dL (2.6-4.7) Magnesium Level 2.3 mg/dL (1.8-2.4) Total Bilirubin 0.4 mg/dL (0.2-1.0) Aspartate Amino Transf (AST/SGOT) 13 U/L (15-37) Alanine Aminotransferase (ALT/SGPT) 17 U/L (14-59) Alkaline Phosphatase 287 U/L (46-116) Total Protein 9.8 g/dL (6.4-8.2) Albumin 3.2 g/dL (3.4-5.0) Albumin/Globulin Ratio 0.5 (1.0-1.7) Urine Opiates Screen Neg (NEG) Urine Methadone Screen Neg (NEG) Urine Barbiturates Neg (NEG) Urine Phencyclidine Screen Neg (NEG) Urine Amphetamine/Methamphetamine Neg (NEG) Urine Benzodiazepines Screen Neg (NEG) Urine Cocaine Screen Neg (NEG) Urine Cannabinoids Screen Neg (NEG) Urine Ethyl Alcohol Neg (NEG) O2 Saturation 98 % (92-99) Arterial Blood pH 7.22 (7.35-7.45) Arterial Blood pCO2 at Patient Temp 16 mmHg (35-46) Arterial Blood pO2 at Patient Temp 129 mmHg (85-108) Arterial Blood HCO3 6 mmol/L (21-28) Arterial Blood Base Excess -19 mmol/L (-3-3) Oxyhemoglobin 97.1 % Methemoglobin 0.3 % (0.0-1.9) Carbon Monoxide, Quantitative 0.3 % (0.0-1.9) FiO2 21%/ra Test 01/29/22 12:19 01/29/22 12:40 01/29/22 13:09 01/29/22 13:20 Glucose (Fingerstick) 377 mg/dL (70-99) 257 mg/dL (70-99) Prothrombin Time 14.7 SEC (11.7-14.0) Prothromb Time International Ratio 1.2 (0.8-1.1) SARS-CoV-2 Antigen (Rapid) Negative (NEGATIVE) Test 01/29/22 14:18 Glucose (Fingerstick) 201 mg/dL (70-99) Images: Images PROCEDURE: CT ANGIOGRAPHY CHEST CTA CHEST History: Dyspnea. Rule out PE. Comparison: Chest x-ray 06/19/2020 Technique: CTA of the pulmonary arteries with intravenous contrast. 3-D postprocessing was performed. Findings: Pulmonary arteries: No pulmonary embolism. Aorta and great vessels: No aneurysm or dissection of the aortic arch or thoracic aorta. Thyroid: No significant abnormalities. Mediastinum and fariha: No mediastinal masses or adenopathy is seen. Esophagus: The visualized esophagus is normal. Heart: The heart is normal in size. There is no pericardial effusion. Airways, Lungs, Pleura: Airways are clear. No airspace consolidation. No pleural effusion or pneumothorax. Upper abdomen: Ill-defined hypoattenuation medial right kidney, partially visualized. Osseous structures and soft tissues: Within normal limits for age. Impression: 1. No pulmonary embolism. No airspace consolidation. 2. Ill-defined hypoattenuation medial right kidney, partially visualized. Findings may represent pyelonephritis in the appropriate clinical setting. If pyelonephritis does not correspond to clinical findings, recommend dedicated MRI or CT the kidneys for further evaluation. Assessment/Plan Assessment/Plan Sepsis DKA Acute electrolyte derangement consistent with DKA Metabolic acidosis, anion gap HALIE due to vasomotor nephropathy Hyperglycemia, uncontrolled Recent Thrombocytosis History of diabetes mellitus type 1, uncontrolled History of polysubstance abuse Admit to ICU for further management Pending hematology evaluation for thrombocytosis ABG on admission pending urine and blood ketones Pending plasma osmolarity Continue serial inspections and examination for sources that caused ketoacidotic state Continue IV insulin starting at 0.1 units per kg When glucose is less than 200, AG is closed, patient able to eat, and HCO3 greater than 15, then transition with subcu insulin 0.1 units/kg every 2 hours for at least 2 hours Continue IV fluids of 1 to 1.5 L/h until a total of 5 L is replenished Switch to one half NS at half the rate if NA is normal or elevated As needed D50 W or add D5 to IV fluids if Accu-Cheks are less than 200 Maintain potassium between 3.5-5, if potassium falls below 3.3, stop insulin and add 40 mEq/h of potassium Maintained p.o. 3 greater than 1.0 If arterial pH is below 6.9, give 100 mEq of sodium bicarb +20 mEq of potassium Every 2-4 hours BMP and a be checked until stable Every hour Accu-Cheks while on insulin Continue to trend platelets Lovenox for DVT prophylaxis Protonix GI prophylaxis ADA diet CODE STATUS full Discussed with RN and SW Disposition continue ICU care and insulin drip DPOA: Mother A total of 45 minutes of critical care time was spent in reviewing chart, labs, and images. Discussed with RN and SW. Justifications for Admission Other Justification BLAINE DICKERSON MD Jan 29, 2022 14:37
[2022-01-29 15:31] LABS: CALCIUM 8.3 mg/dL (8.5-10.1); CREATININE 0.7 mg/dL (0.6-1.0); GFR 107.8; MAGNESIUM 1.6 mg/dL (1.8-2.4); PHOSPHORUS 1.6 mg/dL (2.6-4.7); POTASSIUM 4.4 mmol/L (3.5-5.1)
[2022-01-29] MEDS ORDERED: ENOXAPARIN 40 MG/0.4 ML SYRINGE. SQ SCH (16:00)
[2022-01-29] MEDS ORDERED: MAGNESIUM SULFATE 4GM 100 ML IV ONE (16:30)
[2022-01-29] MEDS ORDERED: SODIUM PHOSPHATE 15 MMOL in IV NORMAL SALINE 250ML 250 ML IV ONE (16:30)
[2022-01-29] MEDS ORDERED: IV DEXTROSE 5% - 0.9 % NACL 1,000 ML IV SCH (19:00)
[2022-01-29 19:06] LABS: CALCIUM 7.9 mg/dL (8.5-10.1); CREATININE 0.6 mg/dL (0.6-1.0); GFR 128.8; MAGNESIUM 3.2 mg/dL (1.8-2.4); PHOSPHORUS 2.7 mg/dL (2.6-4.7); POTASSIUM 3.6 mmol/L (3.5-5.1)
[2022-01-29] MEDS: POTASSIUM CHLORIDE 10MEQ 100 ML IV SCH ×2 (20:14→21:19)
[2022-01-29 22:26] LABS: CALCIUM 7.2 mg/dL (8.5-10.1); CREATININE 0.6 mg/dL (0.6-1.0); GFR 128.8; MAGNESIUM 2.1 mg/dL (1.8-2.4); POTASSIUM 3.7 mmol/L (3.5-5.1)
[2022-01-29] MEDS ORDERED: SODIUM PHOSPHATE 20 MMOL in IV NORMAL SALINE 250ML 250 ML IV PRN (23:00)
--- NOTE | 2022-01-29 23:52 | NUR ---
At approximately 23:10, Pt stated that [facility] had just called and informed her that she needed to get to the NICU where her is immediately. Pt stated that she is refusing the rest of her treatment for DKA and that her ride was on the way. Pt advised and educated on the importance of finishing her treatment. Pt stated that she was not going to be able to and that she was leaving. Dr Savage notified and pt signed AMA form. Both peripheral IVs discontinued. Pt escorted to the parking lot of the ED where her ride was waiting. Pt left with all belongings except for a mint green YETI cup. Pt called and message left as to what she like to do about the cup. Addendum: 01/30/22 at 0002 by RINA RIOS RN RN Amended: Links added.
--- NOTE | 2022-01-30 17:19 | PDOC3 ---
[facility]-Discharge Summary Date of Admission: Date of Admission: Jan 29, 2022 Date of Discharge: Date of Discharge: Jan 29, 2022 Discharge Diagnosis: Discharge Diagnosis: Sepsis DKA Acute electrolyte derangement consistent with DKA Metabolic acidosis, anion gap HALIE due to vasomotor nephropathy Hyperglycemia, uncontrolled Recent Thrombocytosis History of diabetes mellitus type 1, uncontrolled History of polysubstance abuse Hospital Course: Hospital Course: 21-year-old female who has a history of type 1 diabetes mellitus and insulin- dependent who comes in with weakness due to hyperglycemia. Patient is no ncompliant with her insulin regimen and she did receive 24 units of insulin before she went to the emergency department. Her mother did help her with that. Patient was also recently discharged from the hospital after delivering a premature baby at about 30 weeks. Patient did not realize she was . Baby is in the NICU at [facility]. Patient states that she was discharged approximately 1 week ago but did not fill her prescriptions for insulin. Patient states that she has been feeling ill nauseous epigastric cramping. No fevers or chills. No shortness of breath. Admitted for ICU care and insuline gtt. Patient's labs and sugars were improving, but she had a call from the NICU at [facility] and her baby was not doing well. She wanted to leave to see her baby. Patient was not ready for discharge because her AG was not closed yet. Patient left AMA. Disposition: Disposition/Orders: Other (AMA) Activity: Activity: Resume previous activity Diet: Diet: Consistent Carbohydrate Medications: Home Meds Active Scripts Oxycodone/Apap 5-325 (PERCOCET 5-325 MG TABLET ) 1 Each Tablet, 1 TAB PO PRN Q6HRS PRN for PAIN, #15 TAB 0 Refills Prov:JENNIFER KAUFMAN MD 01/22/22 Sulfamethoxazole/Trimethoprim (BACTRIM DS TABLET) 1 Each Tablet, 1 TAB PO BID for UTI for 7 Days, #14 TAB 0 Refills Prov:SHARLA CAPPS MD 07/23/20 Fluticasone Propionate (Flonase Allergy Relief) 9.9 Ml Dorsey.susp, 2 SPRAYS NS DAILY for 30 Days, #1 BOTTLE Prov:STONEY BRAXTON DO 06/19/20 Cetirizine Hcl (ZYRTEC) 10 Mg Tablet, 1 TAB PO DAILY, #30 TAB 0 Refills Prov:STONEY BRAXTON DO 06/19/20 Reported Medications [insulin pump] No Conflict Check, CONT SUBC 07/21/20 Scheduled Cetirizine Hcl (Zyrtec), 1 TAB PO DAILY Fluticasone Propionate (Flonase Allergy Relief), 2 SPRAYS NS DAILY Sulfamethoxazole/Trimethoprim (Bactrim Ds Tablet), 1 TAB PO BID Scheduled PRN Oxycodone/Apap 5-325 (Percocet 5-325 Mg Tablet ), 1 TAB PO PRN Q6HRS PRN for PAIN Miscellaneous Medications [insulin pump], CONT SUBC, (Reported) Total Time: Total Time: Total time spent was 34 minutes in preparing scripts and discharge planning with SW and RN. Patient seen and examined on day of Discharge. Justicifation of Admission Dx: Justifications for Admission: Justification of Admission Dx: N/A BLAINE DICKERSON MD Jan 30, 2022 17:19
== END 2022-01-29 23:38 | disposition left against medical advice (07) | DRG 776 ==
LOC: ER 10:43 → ED HOLD 12:50 → 1 WEST ICU 13:46
PROVIDERS: ADMIT Internal Medicine Hematology & Oncology; ATTEND Internal Medicine Hematology & Oncology
DX: O85 Puerperal sepsis (principal); E10.10 Type 1 diabetes mellitus with ketoacidosis without coma; O90.4 Postpartum acute kidney failure; N17.0 Acute kidney failure with tubular necrosis; O24.93 Unspecified diabetes mellitus in the puerperium; O72.3 Postpartum coagulation defects; D75.839 Thrombocytosis, unspecified; Z53.29 Procedure and treatment not carried out because of patient's decision for other reasons; Z79.4 Long term (current) use of insulin; Z83.3 Family history of diabetes mellitus; Z87.891 Personal history of nicotine dependence; Z98.891 History of uterine scar from previous surgery; Z88.0 Allergy status to penicillin; Z20.822 Contact with and (suspected) exposure to COVID-19
CPT/HCPCS: 36415; 36600; 71275; 80048; 80053; 80307; 81001; 82010; 82805; 82962; 83735; 84100; 85007; 85025; 85610; 87040; 87426; 96361; 96365; 96367; 96375; J1650; J1815; J3370; J3475; J3480; J3490; J7030; J7040; J7042; J7050; Q9967; 99291-25; G0378

== ENCOUNTER 2022-02-13 15:22 | Emergency (ER) | payer OTHER ==
[~2022-02-13] VITALS: Ht 165.1 cm; Wt 59.0 kg
[2022-02-13 15:25] VITALS: BP 113/67
--- NOTE | 2022-02-13 15:39 | ED.ADGEN ---
Past Medical History Past Medical History: Diabetes-Type I Additional Past Medical Histor: drug abuse Past Surgical History: Smoking Status: Never Smoker Alcohol Use: Occasionally Drug Use: Marijuana General Adult EDM: Chief Complaint: LOWER EXT PAIN HPI: HPI: Patient is a 21-year-old female who arrives by private vehicle to the emergency department complaining of right hip and thigh pain. Patient reports this pain began shortly after being released from the hospital for treatment related to diabetic ketoacidosis. Patient states this has been hurting her now for in excess of 10 days. Patient states she has trouble with standing as a relates to her pain. She describes her pain is starting in the lateral aspect of her right hip and migrating medially. Patient states she can bend at the knee and has no pain below the knee. She further denies any history of trauma, back pain or pelvic pain. She further denies any swelling or rash. Additionally she denies any history of blood clots. She further denies any pain elsewhere. She is awake, alert and uncomfortable appearing. Review of Systems: Review of Systems: Constitutional: Denies fever or chills. [] Eyes: Denies change in visual acuity. [] HENT: Denies nasal congestion or sore throat. [] Respiratory: Denies cough or shortness of breath. [] Cardiovascular: Denies chest pain or edema. [] GI: Denies abdominal pain, nausea, vomiting, bloody stools or diarrhea. [] : Denies dysuria. [] Musculoskeletal: Reports right thigh pain. Denies back pain. [] Integument: Denies rash. [] Neurologic: Denies headache, focal weakness or sensory changes. [] Endocrine: Denies polyuria or polydipsia. [] Lymphatic: Denies swollen glands. [] Psychiatric: Denies depression or anxiety. [] Current Medications: Current Medications Medications (Trade) Dose Ordered Sig/Hakan Start Time Stop Time Status Last Admin Dose Admin Acetaminophen/ Hydrocodone Bitart (Lortab 5/325) 1 tab 1X ONCE 02/13/22 16:45 02/13/22 16:46 DC 02/13/22 16:52 1 TAB Allergies: Allergies: Allergies Coded Allergies Type Severity Reaction Last Updated Verified Penicillins Allergy Intermediate Hives 02/13/22 Yes Physical Exam: PE: Constitutional: Uncomfortable appearing. Well developed, well nourished, non- toxic appearance. [] HENT: Normocephalic, atraumatic, bilateral external ears normal, oropharynx moist, no oral exudates, nose normal. [] Eyes: PERRLA, EOMI, conjunctiva normal, no discharge. [] Neck: Normal range of motion, no tenderness, supple, no stridor. [] Cardiovascular: Tachycardia. Heart rate regular rhythm, no murmur [] Lungs & Thorax: Bilateral breath sounds clear to auscultation [] Abdomen: Bowel sounds normal, soft, no tenderness, no masses, no pulsatile masses. [] Skin: Warm, dry, no erythema, no rash. [] Back: No tenderness, no CVA tenderness. [] Extremities: Patient has tenderness palpation of the mid thigh region without deformity. No cyanosis, no clubbing, ROM intact, no edema. [] Neurologic: Alert and oriented X 3, normal motor function, normal sensory function, no focal deficits noted. [] Psychologic: Affect normal, judgement normal, mood normal. [] Current Patient Data: Vital Signs: Vital Signs Date Time Temp Pulse Resp B/P (MAP) Pulse Ox O2 Delivery O2 Flow Rate FiO2 02/13/22 16:53 128 16 116/65 (82) 96 02/13/22 16:52 Room Air 02/13/22 15:25 98.4 98.4 EKG: EKG: [] Heart Score: C/O Chest Pain: No Risk Factors: Risk Factors: DM, Current or recent (<one month) smoker, HTN, HLP, family history of CAD, obesity. Risk Scores: Score 0 - 3: 2.5% MACE over next 6 weeks - Discharge Home Score 4 - 6: 20.3% MACE over next 6 weeks - Admit for Clinical Observation Score 7 - 10: 72.7% MACE over next 6 weeks - Early Invasive Strategies Radiology/Procedures: Radiology/Procedures: [][facility] [address] [place] [address] IMAGING REPORT Signed PATIENT: JESSICA TURNER RACCOUNT: [id number] : 2000 LOCATION: ER AGE: 21 SEX: F EXAM STATUS: PRE ER ORD. PHYSICIAN: VICTOR M CARABALLO DO REASON: Pain in right hip, unable to bear wt, lrom PROCEDURE: HIP RIGHT 2V WITH PELVIS INDICATION: Reason: Pain in right hip, unable to bear wt, lrom / Spl. Instructions: / History: COMPARISON: None. IMPRESSION: Right hip: 3 views obtained. No evidence of dislocation. No definite acute fracture. There is a suspected right hip joint effusion. Swelling in the adjacent soft tissues. Soft tissue injury can have this appearance. Right femur: 2 views obtained. A definite acute fracture line is not seen. There are some limitation on the frontal view secondary to difficulty with positioning. There is patella baja however this can be positional. Electronically signed by: Perez Jacobs MD (02/13/2022 4:24 PM) [id number] DICTATED and SIGNED BY: PEREZ JACOBS MD DATE: 02/13/22 1610 [facility] [address] [place], [place] [id number] IMAGING REPORT Signed PATIENT: JESSICA TURNER RACCOUNT: [id number] : 2000 LOCATION: ER AGE: 21 SEX: F EXAM STATUS: PRE ER ORD. PHYSICIAN: VICTOR M CARABALLO DO REASON: Right thigh pain PROCEDURE: VENOUS LOWER EXTREMITY RIGHT EXAMINATION: US DPLX VENOUS EXTREMITY LOWER RT (LOWER EXTREMITY VENOUS ULTRASOUND) CLINICAL HISTORY: Right lower extremity pain. TECHNIQUE: Sonographic grayscale images obtained of the right lower extremity deep venous system with color flow Doppler, compression, and augmentation techniques as indicated. Images obtained and stored in a permanent archive. COMPARISON: None FINDINGS: No evidence of absent flow or incompressibility within the common femoral vein, femoral vein, or popliteal vein. Visualized calf veins appear patent on limited evaluation. IMPRESSION: No evidence of right lower extremity DVT. Electronically signed by: Araceli Uribe DO (02/13/2022 4:21 PM) [id number] DICTATED and SIGNED BY: ARACELI URIBE DO DATE: 02/13/22 1620 Course & Med Decision Making: Course & Med Decision Making Pertinent Labs and Imaging studies reviewed. (See chart for details) The patient remains awake, alert and continues to have pain. Imaging in the emergency department does not reveal anything acute. There does appear to be a small soft tissue effusion to the lateral aspect of the right hip. Despite th is, patient denies any pain at the hip per se and stated it is more located over the anterior aspect of her humerus. Upon inspection there is no evidence of erythema, rash or any external sign of trauma. Ultrasonography was performed and did not reveal any acute thrombosis. At this point I do not know if this is related to possible neuropathy the patient has with respect to poorly controlled diabetes. I provided the patient with pain medication and have advised that she follow-up with her primary care physician should she have continued pain. The patient understands that she will do so. She is otherwise been encouraged to rest and ice this region. She is nontoxic-appearing and stable for discharge. Of note, the patient has a history of insulin-dependent diabetes and exhausted her medication today. She was recently admitted for diabetic ketoacidosis however she states she did not obtain a prescription for her NovoLog. I contacted her pharmacy and have provided her with the appropriate dose and stressed the need to care for this on a regular basis as not treating her diabetes has potentially deadly consequences. She understands that she states she will follow-up with her pharmacy as well as her primary care physician. She is nontoxic-appearing and stable for discharge. [] Eladio Disclaimer: Eladio Disclaimer: This electronic medical record was generated, in whole or in part, using a voice recognition dictation system. Departure Departure Impression: Primary Impression: Right thigh pain Disposition: HOME / SELF CARE / HOMELESS Condition: STABLE Referrals: NO PCP (PCP) Patient Instructions: Muscle Strain Scripts Insulin Aspart (NOVOLOG) 100 Unit/1 Ml Vial 10 UNIT SQ TID for 30 Days, EACH Please take 3 times daily with meals Prov: VICTOR M CARABALLO DO 02/13/22 Orphenadrine Citrate (ORPHENADRINE CITRATE) 100 Mg Tablet.er 1 TAB PO BID for 7 Days, #14 TAB 1 Refill Prov: VICTOR M CARABALLO DO 02/13/22 Hydrocodone/Acetaminophen (Hydrocodone-Acetamin 5-325 mg) 1 Each Tablet 1 EACH PO Q6HRS for 3 Days, #12 TAB Prov: VICTOR M CARABALLO DO 02/13/22 VICTOR M CARABALLO DO Feb 13, 2022 15:39
--- NOTE | 2022-02-13 16:24 | RAD ---
EXAMINATION: US DPLX VENOUS EXTREMITY LOWER RT (LOWER EXTREMITY VENOUS ULTRASOUND) CLINICAL HISTORY: Right lower extremity pain. TECHNIQUE: Sonographic grayscale images obtained of the right lower extremity deep venous system with color flow Doppler, compression, and augmentation techniques as indicated. Images obtained and stor ed in a permanent archive. COMPARISON: None FINDINGS: No evidence of absent flow or incompressibility within the common femoral vein, femoral vein, or popl iteal vein. Visualized calf veins appear patent on limited evaluation. IMPRESSION: No evidence of right lower extremity DVT. Electronically signed by: Aung Bunch DO (02/13/2022 4:21 PM) [id number]
--- NOTE | 2022-02-13 16:26 | RAD ---
INDICATION: Reason: Pain in right hip, unable to bear wt, lrom / Spl. Instructions: / History: COMPARISON: None. IMPRESSION: Right hip: 3 views obtained. No evidence of dislocation. No definite acute fracture. There is a suspe cted right hip joint effusion. Swelling in the adjacent soft tissues. Soft tissue injury can have thi s appearance. Right femur: 2 views obtained. A definite acute fracture line is not seen. There are some limitation on the frontal view secondary to difficulty with positioning. There is patella baja however this can be positional. Electronically signed by: Deric Sanchez MD (02/13/2022 4:24 PM) [id number]
[2022-02-13] MEDS ORDERED: HYDROcodone/APAP 5/325MG 1 TAB TABLET PO ONE (16:45)
[2022-02-13] MEDS ORDERED: HYDR-2759 PO (17:17)
[2022-02-13] MEDS ORDERED: ORPH100T PO (17:17)
[2022-02-13] MEDS ORDERED: INSU100V31 SQ (17:51)
== END 2022-02-13 18:11 | disposition home or self-care (01) ==
LOC: ER 15:22
DX: M79.651 Pain in right thigh (principal); M25.551 Pain in right hip; E10.9 Type 1 diabetes mellitus without complications; Z88.0 Allergy status to penicillin
CPT/HCPCS: 73502; 73552; 93971; 99284